=== PATIENT | female | born 1995 | race Two or more races ===

== ENCOUNTER 2017-05-23 12:15 | Emergency (ER) | payer OTHER ==
[2017-05-23 12:25] VITALS: TEMP 99
[2017-05-23] MEDS ORDERED: DEXAMETHASONE 10 MG/ML VIAL IVP ONE (13:04)
[2017-05-23] MEDS ORDERED: METOCLOPRAMIDE 10 MG/2 ML VIAL IVP ONE (13:04)
[2017-05-23] MEDS ORDERED: NS 1,000 ML IV ONE ×2 (13:04→14:33)
--- NOTE | 2017-05-23 13:08 | EDPHY ---
General Narrative: CHIEF COMPLAINT: Flu-like symptoms, migraine, flank pain HISTORY OF PRESENT ILLNESS: Patient complains of 1 week history of migraine headache. Gradual onset. Constant duration. This has become worsened over the past 2 days that she has developed other flu-like symptoms. This includes sore throat, cough, runny nose , congestion, body aches and chills. She also has bilateral flank pain. No dysuria but she has not been drinking much water. She has no chest pain at this time but does have some chest discomfort with cough. No abdominal pain. No neck stiffness but does have some neck pain. No other associated complaints or modifying factors. REVIEW OF SYSTEMS: Ten systems reviewed and are negative unless otherwise noted in the HPI PAST MEDICAL HISTORY: Migraine headaches PAST SURGICAL HISTORY: None SOCIAL HISTORY: Nonsmoker. Recently moved from [facility] to attend [place] [facility] [employer] FAMILY HISTORY: Noncontributory EXAMINATION General Appearance: Alert, no distress Head: normocephalic, atraumatic Eyes: Pupils equal and round, no conjunctival pallor or injection ENT, Mouth: Mucous membranes moist. Uvula midline. Airway is widely patent. There is mild erythema of the pharynx. The tonsils are not enlarged. No exudate. Neck: Normal inspection, supple, non-tender. Painless range of motion all planes. No meningismus or rigidity. Respiratory: Lungs are clear to auscultation. No wheezing, rhonchi or crackles Cardiovascular: Regular rate and rhythm. No murmur Gastrointestinal: Abdomen is soft and nontender Back: non-tender, no bony abnormalities Neurological: A&O, nonfocal, normal gait Skin: Warm and dry, no rash. No petechiae or purpura Extremities: Nontender, no pedal edema Psychiatric: Mood and affect normal DIFFERENTIAL DIAGNOSES: Including but not limited to influenza, mononucleosis, strep, viral pharyngitis , bacterial pharyngitis, upper respiratory infection, pneumonia, bronchitis, UTI , pyelo MDM: 1:00 p.m. Headache, body aches, sore throat, cough of flank pain. Patient does have appearance of influenza. There is no evidence of meningitis. I have ordered laboratory studies, IV fluid and medications for her migraine. She is resting comfortably in no acute distress. 2:30 p.m. I have re-evaluated the patient. Headache is significantly better. Still feeling ill. Laboratory studies thus far are negative for any significant findings. Chest x-ray was not ordered as lungs are clear with normal oxygenation. Suspect influenza or viral etiology. Continue IV fluid. 3:30 p.m. I re-evaluated the patient. She is feeling better. She still feels ill but has no neck pain or stiffness. Her head is mildly painful. He has no chest pain. Vital signs stable. She has received IV fluid. Negative influenza test. Treat symptomatically and follow up with primary care physician. ED precautions discussed. She is comfortable with this plan and discharged home stable condition. - History Smoking Status: Never smoked - Objective Vital Signs: Initial Vital Signs Temperature (C) 99.0 F 05/23/17 12:21 Heart Rate 67 05/23/17 12:21 Respiratory Rate 17 05/23/17 12:21 Blood Pressure 115/72 05/23/17 12:21 O2 Sat (%) 99 05/23/17 12:21 O2 Delivery Mode Room Air Allergies/Adverse Reactions: No Known Allergies Allergy (Unverified 05/23/17 12:20) Home Medications: Medication Instructions Recorded Codeine/Butalbit/Acetamin/Caff 1 each PO Q6 PRN #12 capsule 05/23/17 [Fioricet-Cod 02-78-557-40 Cap] IMITREX 05/23/17 Oseltamivir Phosphate [Tamiflu 75 75 mg PO BID #10 cap 05/23/17 mg (*)] Laboratory Results: Laboratory Results 05/23/17 13:23 05/23/17 13:23 05/23/17 05/23/17 05/23/17 Unknown 13:23 13:23 WBC RBC Hgb Hct MCV MCH MCHC RDW Plt Count MPV Neut % (Auto) Lymph % (Auto) [place] % (Auto) Eos % (Auto) Baso % (Auto) Nucleat RBC Rel Count Absolute Neuts (auto) Absolute Lymphs (auto) Absolute Monos (auto) Absolute Eos (auto) Absolute Basos (auto) Absolute Nucleated RBC Immature Gran % Immature Gran # Sodium 140 mEq/L mEq/L (134-144) Potassium 4.6 mEq/L mEq/L (3.5-5.2) Chloride 106 mEq/L mEq/L (97-110) Carbon Dioxide 24 mEq/l mEq/l (22-31) Anion Gap 10 mEq/L mEq/L (8-16) BUN 13 mg/dL mg/dL (7-23) Creatinine 0.8 mg/dL mg/dL (0.6-1.0) Estimated GFR > 60 Glucose 82 mg/dL mg/dL (70-100) Calcium 10.1 mg/dL mg/dL (8.5-10.4) Beta HCG, Qual Urine Color YELLOW Urine Appearance HAZY Urine pH 7.0 (5.0-7.5) Ur Specific Lar[place] 1.015 (1.002-1.030) Urine Protein NEGATIVE (NEGATIVE) Urine Ketones NEGATIVE (NEGATIVE) Urine Blood 3+ H (NEGATIVE) Urine Nitrate NEGATIVE (NEGATIVE) Urine Bilirubin NEGATIVE (NEGATIVE) Urine Urobilinogen NEGATIVE EU EU (0.2-1.0) Ur Leukocyte Esterase NEGATIVE (NEGATIVE) Urine RBC 50-182 /hpf H /hpf (0-3) Urine WBC 1-3 /hpf /hpf (0-3) Ur Epithelial Cells TRACE /lpf /lpf (NONE-1+) Urine Glucose NEGATIVE (NEGATIVE) Monoscreen Influenza A & B (PCR) Group A Strep Screen Group A Strep DNA Pending 05/23/17 05/23/17 05/23/17 13:23 13:23 13:23 WBC 8.79 10^3/uL 10^3/uL (3.80-9.50) RBC 4.82 10^6/uL 10^6/uL (4.18-5.33) Hgb 13.6 g/dL g/dL (12.6-16.3) Hct 42.7 % % (38.0-47.0) MCV 88.6 fL fL (81.5-99.8) MCH 28.2 pg pg (27.9-34.1) MCHC 31.9 g/dL L g/dL (32.4-36.7) RDW 15.5 % H % (11.5-15.2) Plt Count 353 10^3/uL 10^3/uL (150-400) MPV 10.4 fL fL (8.7-11.7) Neut % (Auto) 52.8 % % (39.3-74.2) Lymph % (Auto) 34.1 % % (15.0-45.0) [place] % (Auto) 8.5 % % (4.5-13.0) Eos % (Auto) 3.6 % % (0.6-7.6) Baso % (Auto) 0.7 % % (0.3-1.7) Nucleat RBC Rel Count 0.0 % % (0.0-0.2) Absolute Neuts (auto) 4.63 10^3/uL 10^3/uL (1.70-6.50) Absolute Lymphs (auto) 3.00 10^3/uL 10^3/uL (1.00-3.00) Absolute Monos (auto) 0.75 10^3/uL 10^3/uL (0.30-0.80) Absolute Eos (auto) 0.32 10^3/uL 10^3/uL (0.03-0.40) Absolute Basos (auto) 0.06 10^3/uL 10^3/uL (0.02-0.10) Absolute Nucleated RBC 0.00 10^3/uL 10^3/uL (0-0.01) Immature Gran % 0.3 % % (0.0-1.1) Immature Gran # 0.03 10^3/uL 10^3/uL (0.00-0.10) Sodium Potassium Chloride Carbon Dioxide Anion Gap BUN Creatinine Estimated GFR Glucose Calcium Beta HCG, Qual NEGATIVE Urine Color Urine Appearance Urine pH Ur Specific Larimore Urine Protein Urine Ketones Urine Blood Urine Nitrate Urine Bilirubin Urine Urobilinogen Ur Leukocyte Esterase Urine RBC Urine WBC Ur Epithelial Cells Urine Glucose Monoscreen NEGATIVE (NEGATIVE) Influenza A & B (PCR) Group A Strep Screen NEGATIVE (NEGATIVE) Group A Strep DNA 05/23/17 13:23 WBC RBC Hgb Hct MCV MCH MCHC RDW Plt Count MPV Neut % (Auto) Lymph % (Auto) [place] % (Auto) Eos % (Auto) Baso % (Auto) Nucleat RBC Rel Count Absolute Neuts (auto) Absolute Lymphs (auto) Absolute Monos (auto) Absolute Eos (auto) Absolute Basos (auto) Absolute Nucleated RBC Immature Gran % Immature Gran # Sodium Potassium Chloride Carbon Dioxide Anion Gap BUN Creatinine Estimated GFR Glucose Calcium Beta HCG, Qual Urine Color Urine Appearance Urine pH Ur Specific Larimore Urine Protein Urine Ketones Urine Blood Urine Nitrate Urine Bilirubin Urine Urobilinogen Ur Leukocyte Esterase Urine RBC Urine WBC Ur Epithelial Cells Urine Glucose Monoscreen Influenza A & B (PCR) NEGATIVE FOR FLU (NEGATIVE) Group A Strep Screen Group A Strep DNA Medications Given: Discontinued Medications Dexamethasone (Decadron Injection) 10 mg IVP EDNOW ONE Stop: 05/23/17 13:05 Last Admin: 05/23/17 13:18 Dose: 10 mg Diphenhydramine HCl (Benadryl Injection) 25 mg IVP EDNOW ONE Stop: 05/23/17 13:05 Last Admin: 05/23/17 13:18 Dose: 25 mg Sodium Chloride (Ns) 1,000 mls @ 0 mls/hr IV EDNOW ONE; Wide Open PRN Reason: Protocol Stop: 05/23/17 13:05 Last Admin: 05/23/17 13:17 Dose: 1,000 mls Sodium Chloride (Ns) 1,000 mls @ 0 mls/hr IV EDNOW ONE; Wide Open PRN Reason: Protocol Stop: 05/23/17 14:34 Last Admin: 05/23/17 14:40 Dose: 1,000 mls Metoclopramide HCl (Reglan Injection) 10 mg IVP EDNOW ONE Stop: 05/23/17 13:05 Last Admin: 05/23/17 13:18 Dose: 10 mg Departure - Departure Disposition: Home, Routine, Self-Care Clinical Impression: Acute upper respiratory infection, Flu-like symptoms Acute pharyngitis Qualifiers: Pharyngitis/tonsillitis etiology: other specified organisms Qualified Code(s): J02.8 - Acute pharyngitis due to other specified organisms Condition: Good Instructions: Pharyngitis (ED), Influenza (ED) Additional Instructions: 1. Increase fluid intake as discussed 2. Ibuprofen, 600 mg every 8 hours as needed for the next 3-5 days 3. Tylenol 3 with codeine for cough and body aches as prescribed as needed 4. ED precautions for worsening symptoms, chest pain, shortness of breath, dizziness Referrals: NONE *PRIMARY CARE P,. [Primary Care Provider] - As per Instructions Kevin Mercado MD [[facility] Primary Care Provider] - As per Instructions Prescriptions: Codeine/Butalbit/Acetamin/Caff [Fioricet-Cod 68-78-090-40 Cap] 1 each PO Q6 PRN #12 capsule PRN Reason: Headache Oseltamivir Phosphate [Tamiflu 75 mg (*)] 75 mg PO BID #10 cap
[2017-05-23 13:39] LABS: % IMMATURE GRANULYOCYTES 0.3 % (0.0-1.1); ABSOLUTE IMMATURE GRANULOCYTES 0.03 10^3/uL (0.00-0.10); ADD DIFF? NO; ADD MORPH? NO; ADD SCAN? NO; ATYPICAL LYMPHOCYTE FLAG 10 (0-99); FRAGMENT RBC FLAG 0 (0-99); HEMATOCRIT 42.7 % (38.0-47.0); HEMOGLOBIN 13.6 g/dL (12.6-16.3); LEFT SHIFT FLG 0 (0-99); LIPEMIA HEMOLYSIS FLAG 80 (0-99); MEAN CELL HEMOGLOBIN 28.2 pg (27.9-34.1); MEAN CELL HEMOGLOBIN CONCENTR. 31.9 g/dL (32.4-36.7); MEAN CELL VOLUME 88.6 fL (81.5-99.8); MEAN PLATELET VOLUME 10.4 fL (8.7-11.7); PLATELET CLUMPS FLAG 0 (0-99); PLATELET COUNT 353 10^3/uL (150-400); RED BLOOD CELL COUNT 4.82 10^6/uL (4.18-5.33); RED CELL DISTRIBUTION WIDTH 15.5 % (11.5-15.2)
[2017-05-23 13:55] LABS: BHCG-QUALITATIVE NEGATIVE
[2017-05-23 13:56] LABS: MONO TEST NEGATIVE (NEGATIVE)
[2017-05-23 14:02] VITALS: BP 107/74
[2017-05-23 14:03] LABS: ANION GAP 10 mEq/L (8-16); CALCIUM 10.1 mg/dL (8.5-10.4); CARBON DIOXIDE 24 mEq/l (22-31); CHLORIDE 106 mEq/L (97-110); CREATININE 0.8 mg/dL (0.6-1.0); GLOMERULAR FILTRATION RATE > 60; GLUCOSE 82 mg/dL (70-100); POTASSIUM 4.6 mEq/L (3.5-5.2); SODIUM 140 mEq/L (134-144)
[2017-05-23 14:06] LABS: COLOR YELLOW; LEUKOCYTE ESTERASE,URINE NEGATIVE (NEGATIVE); NITRITE,URINE NEGATIVE (NEGATIVE)
[2017-05-23 14:25] LABS: RBC,URINE 50-182 /hpf (0-3)
[2017-05-23 14:42] VITALS: PULSE 71; RESP 18; O2SAT 100
== END 2017-05-23 16:03 | disposition home or self-care (01) ==
DX: J11.1 Influenza due to unidentified influenza virus with other respiratory manifestations (principal); E86.9 Volume depletion, unspecified
CPT/HCPCS: 96374; J1100; J1200; J2765

== ENCOUNTER 2017-06-03 09:29 | Emergency (ER) | payer OTHER ==
[2017-06-03 09:46] VITALS: PULSE 70; O2SAT 97
[2017-06-03] MEDS ORDERED: DEXAMETHASONE 10 MG/ML VIAL IVP ONE (10:12)
[2017-06-03] MEDS ORDERED: ONDANSETRON 4 MG/2 ML VIAL IVP ONE (10:12)
[2017-06-03] MEDS ORDERED: NS 1,000 ML IV ONE (10:12)
[2017-06-03] MEDS ORDERED: KETOROLAC 30 MG/1 ML SDV IVP ONE (10:12)
--- NOTE | 2017-06-03 10:15 | EDPHY ---
H & P Smoking Status: Never smoked Time Seen by Provider: 06/03/17 09:53 HPI/ROS: CHIEF COMPLAINT: Headache HISTORY OF PRESENT ILLNESS: 21-year-old female presents to the emergency department complaining of migraine headache. Patient states that she developed gradual onset of a headache that has continued not gone away. She has a history of migraine headaches. She feels that this is a typical headache for her. She typically develops migraine headaches every 2-4 weeks. She takes propranolol daily to prevent migraines and then takes another rescue medication which she tried without relief. No reported trauma. She is photophobic. Denies any other visual changes such as double vision or blurry vision. She feels nauseous although no vomiting. No neck or back pain. No chest pain or difficulty breathing. Last menstrual period was 10 days ago and denies . REVIEW OF SYSTEMS: Constitutional: No fever, no chills. Eyes: No double or blurry vision. ENT: No sore throat. Respiratory: No cough, no shortness of breath. Cardiac: No chest pain. Gastrointestinal: Nausea. No abdominal pain, vomiting or diarrhea. Genitourinary: No dysuria. Musculoskeletal: No neck or back pain. Skin: No rashes. Neurological: headache. 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 Mentating normally and answering questions appropriately. Vital signs are stable. Eyes: Pupils equal and round. Extraocular motions are all intact. ENT: Mouth: Mucous membranes moist. Respiratory: No wheezing, rhonchi, or rales, lungs are clear to auscultation. Cardiovascular: Regular rate and rhythm. Gastrointestinal: Abdomen is soft and nontender, no masses, no rebound or guarding, bowel sounds normal. Neurological: Alert and oriented x 3, cranial nerves II through XII grossly intact Skin: Warm and dry, no rashes. Musculoskeletal: Nontender to palpate along the cervical, thoracic or lumbar spine. Neck is supple. Extremities: Full range of motion and no peripheral edema. Psychiatric: Patient is oriented X 3, there is no agitation. (Judie Ellsworth) Constitutional: Initial Vital Signs Temperature (C) 36.7 C 06/03/17 09:43 Heart Rate 70 06/03/17 09:43 Respiratory Rate 16 06/03/17 09:43 Blood Pressure 123/91 H 06/03/17 09:43 O2 Sat (%) 97 06/03/17 09:43 O2 Delivery Mode Room Air Allergies/Adverse Reactions: No Known Allergies Allergy (Verified 06/03/17 09:41) Home Medications: Medication Instructions Recorded Ondansetron Odt [Zofran Odt] 4 mg PO Q4PRN #8 tab 06/03/17 Propranolol HCl 06/03/17 Rizatriptan 06/03/17 Medical Decision Making ED Course/Re-evaluation: Patient feels that this is a typical migraine headache for her. She has a normal neurologic examination. An IV was established and the patient was given 10 mg of Decadron, 30 mg of Toradol, 4 mg of Zofran, and 1 L of IV normal saline. Patient did not want any medication that would make her drowsy since she is trying to go back to class. Patient was re-evaluated was feeling much better. She is comfortable being discharged home. (Judie Ellsworth) The patient was evaluated and managed by the physician environmental services assistant. I have reviewed this chart and I agree with the findings and plan of care as documented , as indicated by my signature. I am the secondary supervising physician. ( Gogo Alex) Differential Diagnosis: Headache including but not limited to subarachnoid hemorrhage, migraine headache , tension headache and infectious causes such as meningitis, pharyngitis and sinusitis. (Judie Ellsworth) - Data Points Medications Given: Discontinued Medications Dexamethasone (Decadron Injection) 10 mg IVP EDNOW ONE Stop: 06/03/17 10:13 Last Admin: 06/03/17 10:19 Dose: 10 mg Sodium Chloride (Ns) 1,000 mls @ 0 mls/hr IV ONCE ONE PRN Reason: Wide Open Stop: 06/03/17 10:13 Last Admin: 06/03/17 10:19 Dose: 1,000 mls Ketorolac Tromethamine (Toradol) 30 mg IVP EDNOW ONE Stop: 06/03/17 10:13 Last Admin: 06/03/17 10:19 Dose: 30 mg Ondansetron HCl (Zofran) 4 mg IVP EDNOW ONE Stop: 06/03/17 10:13 Last Admin: 06/03/17 10:20 Dose: 4 mg Departure - Departure Disposition: Home, Routine, Self-Care Clinical Impression: Migraine headache Condition: Good Instructions: Migraine Headache (ED) Additional Instructions: Return to the emergency department if any change in symptoms or if you feel worse in any way. You should follow up with your neurologist this week to recheck. Referrals: Anatoliy Cabral MD [Medical Doctor] - As per Instructions (Neurologist on-call ) Stand Alone Forms: School Excuse Prescriptions: Ondansetron Odt [Zofran Odt] 4 mg PO Q4PRN #8 tab
[2017-06-03 11:54] VITALS: BP 118/74; RESP 18; TEMP 97.9
== END 2017-06-03 11:54 | disposition home or self-care (01) ==
DX: G43.909 Migraine, unspecified, not intractable, without status migrainosus (principal)
CPT/HCPCS: 96374; J1100; J1885; J2405

== ENCOUNTER 2017-06-25 11:20 | Emergency (ER) | payer OTHER ==
[2017-06-25 11:24] VITALS: BP 109/80; PULSE 78; RESP 16; TEMP 98.2; O2SAT 96
== END 2017-06-25 12:30 | disposition left against medical advice (07) ==
DX: Z53.21 Procedure and treatment not carried out due to patient leaving prior to being seen by health care provider (principal)

== ENCOUNTER 2017-06-25 16:18 | Emergency (ER) | payer OTHER ==
[2017-06-25 16:27] VITALS: BP 107/70; PULSE 78; RESP 16; TEMP 97.9; O2SAT 98
== END 2017-06-25 18:07 | disposition left against medical advice (07) ==
DX: Z53.21 Procedure and treatment not carried out due to patient leaving prior to being seen by health care provider (principal)

== ENCOUNTER 2017-07-03 12:32 | Emergency (ER) | payer OTHER ==
[2017-07-03] MEDS ORDERED: ONDANSETRON 4 MG/2 ML VIAL IVP ONE (13:34)
[2017-07-03] MEDS ORDERED: KETOROLAC 30 MG/1 ML SDV IVP ONE (13:34)
[2017-07-03] MEDS ORDERED: NS 1,000 ML IV ONE (13:34)
[2017-07-03] MEDS ORDERED: DEXAMETHASONE 10 MG/ML VIAL IVP ONE (13:34)
--- NOTE | 2017-07-03 13:34 | EDPHY ---
H & P Stated Complaint: migraine x 3 weeks Time Seen by Provider: 07/03/17 12:55 HPI/ROS: CHIEF COMPLAINT: Migraine headache HISTORY OF PRESENT ILLNESS: 21-year-old female with a history of chronic migraine headaches complaining of 3 weeks of waxing waning migraine headache worse since this morning not relieved after taking her breakthrough abortive migraine medication. She is on a regimen of daily propranolol as well. She is followed by neurologist in [place], [place]. She is positive photophobia and nausea. No vomiting. No neck pain or stiffness. No fever or chills. Denies head injury. Denies dizziness. Denies hearing loss. Denies gait instability. Not thunderclap. Not worst headache of life. REVIEW OF SYSTEMS: A ten point review of systems was performed and is negative with the exception of the items mentioned in the HPI PAST MEDICAL & SURGICAL HISTORY: Chronic migraine SOCIAL HISTORY:[employer] Student PHYSICAL EXAM (Prior to examination, patient consented to physical exam, hands were washed and my usual and customary physical exam procedures followed) 1) GENERAL: Well-developed, well-nourished, alert and oriented. Appears uncomfortable. 2) HEAD: Normocephalic, atraumatic 3) HEENT: Pupils equal, round, reactive to light bilaterally. Sclera anicteric. No injection. No tearing. No Joan's. Positive photophobia 4) NECK: Full range of motion, no meningeal signs. 5) LUNGS: Clear auscultation bilaterally, no wheezes, no rhonchi, no retractions. 6) HEART: Regular rate and rhythm, no murmur, no heave, no gallop. 7) ABDOMEN: No guarding, no rebound, no focal tenderness 8) MUSCULOSKELETAL: Moving all extremities, no focal areas of tenderness, no obvious trauma. No peripheral edema or discoloration. 9) BACK: No CVA tenderness, no midline vertebral tenderness, no fluctuance, no step-off, no obvious trauma, no visual or palpable abnormality. 10) SKIN: No rash, no petechiae. 11) Psychiatric: Patient is oriented X 3, there is no agitation. 12)NEURO: Awake, alert, and oriented to person, place and time. Answers questions appropriately. There were no obvious focal neurologic abnormalities. No cerebellar dysfunction. Normal steady gait. Upper and lower extremities bilaterally with strength 5 / 5, reflexes 2+. DIFFERENTIAL DIAGNOSIS: In no particular order, including but not limited to subarachnoid hemorrhage, migraine headache, tension headache and infectious causes such as meningitis, pharyngitis and sinusitis. The patient understands that this diagnosis is provisional and can never be 100% accurate. Usual and customary warnings were given concerning the clinical impression and all the patient's questions were answered. The patient was instructed to return to the emergency department should her symptoms worsen or return, or develop any new symptoms, otherwise to followup as directed in discharge instructions. This is a partial list of diagnoses considered. These considerations are based on history, physical exam, past history and reassessment. - Personal History LMP (Females 10-55): 8-14 Days Ago Current Tetanus Diphtheria and Acellular Pertussis (TDAP): Yes - Medical/Surgical History Hx Asthma: No Hx Chronic Respiratory Disease: No Hx Diabetes: No Hx Cardiac Disease: No Hx Renal Disease: No Hx Cirrhosis: No Hx Alcoholism: No Hx HIV/AIDS: No Hx Splenectomy or Spleen Trauma: No Other PMH: MIGRAINES (has hx x 2yrs) - Social History Smoking Status: Never smoked Constitutional: Initial Vital Signs Temperature (C) 36.7 C 07/03/17 12:40 Heart Rate 90 07/03/17 12:40 Respiratory Rate 16 07/03/17 12:40 O2 Sat (%) 100 07/03/17 12:40 O2 Delivery Mode Room Air Allergies/Adverse Reactions: No Known Allergies Allergy (Verified 06/25/17 16:24) Home Medications: Medication Instructions Recorded Ondansetron Odt [Zofran Odt] 4 mg PO Q4PRN #8 tab 06/03/17 Propranolol HCl 06/03/17 Rizatriptan 06/03/17 Medical Decision Making ED Course/Re-evaluation: 1:34 p.m.: Old medical records reviewed. She requests medication which will not cause her drowsiness as she is driving. Prior emergency department visit she was given Decadron, Toradol, Zofran, IV fluids which alleviated her symptoms. She was requesting similar. Care of patient under supervision of secondary supervising physician Dr Ornelas . 2:45 p.m.: Re-evaluation after Decadron, Toradol, Zofran, IV fluids. States that she is feeling improvement, would like to be discharged home. Remains the grossly nonfocal neurologic examination no neurologic complaints. I think that subarachnoid hemorrhage, intracranial mass, malignancy, less than likely in this patient at this time. I do not think that the benefits of CT imaging, lumbar puncture, outweigh the risks in this patient. She has previously been given the name of Dr. Anatoliy Cabral for local neurology follow-up however she may also follow up with her neurologist in [facility]. - Data Points Medications Given: Discontinued Medications Dexamethasone (Decadron Injection) 10 mg IVP EDNOW ONE Stop: 07/03/17 13:35 Last Admin: 07/03/17 13:42 Dose: 10 mg Sodium Chloride (Ns) 1,000 mls @ 0 mls/hr IV ONCE ONE PRN Reason: Wide Open Stop: 07/03/17 13:35 Last Admin: 07/03/17 13:42 Dose: 1,000 mls Ketorolac Tromethamine (Toradol) 30 mg IVP EDNOW ONE Stop: 07/03/17 13:35 Last Admin: 07/03/17 13:42 Dose: 30 mg Ondansetron HCl (Zofran) 4 mg IVP EDNOW ONE Stop: 07/03/17 13:35 Last Admin: 07/03/17 13:42 Dose: 4 mg Departure - Departure Disposition: Home, Routine, Self-Care Clinical Impression: Headache Qualifiers: Headache type: unspecified Headache chronicity pattern: acute headache Intractability: not intractable Qualified Code(s): R51 - Headache Condition: Good Instructions: Acute Headache (ED) Additional Instructions: RETURN TO THE ED IMMEDIATELY IF YOUR HEADACHE WORSENS, IF YOU DEVELOP A FEVER, NECK PAIN OR NECK STIFFNESS, OR IF YOU BECOME CONFUSED OR ABNORMALLY DROWSY. Referrals: Anatoliy Cabral MD [Medical Doctor] - 2-3 days, call for appt. Stand Alone Forms: School Excuse
[2017-07-03 15:05] VITALS: BP 128/73; PULSE 78; RESP 18; TEMP 98.2; O2SAT 97
== END 2017-07-03 15:05 | disposition home or self-care (01) ==
PROC: 3E0337Z Introduction of Electrolytic and Water Balance Substance into Peripheral Vein, Percutaneous Approach (ICD-10-PCS; principal; 2017-07-03)
DX: R51 Headache (principal)
CPT/HCPCS: 96374; J1100; J1885; J2405

== ENCOUNTER 2017-07-18 00:16 | Emergency (ER) | payer OTHER ==
[2017-07-18] MEDS ORDERED: IBUPROFEN 600 MG TAB PO ONE (01:13)
--- NOTE | 2017-07-18 01:59 | EDPHY ---
H & P Stated Complaint: fever/cough/sorethroat/nausea x 3 days Time Seen by Provider: 07/18/17 01:38 HPI/ROS: CC: Fever, ST, cough HPI: 21 y/o female with fever, dry cough, congestion for the past two days. Has not been taking any medicine. Some nausea, no vomiting. No chest pain or shortness of breath. She is up to date on her vaccinations. ROS: 12 point ROS is negative except as noted in HPI. Exam: Awake, Alert, No distress HEENT: Ears: nl nose: clear rhinorrhea Throat, Mild erythema Neck: no lymphadenoapthy, supple Chest: CTA Heart: No murmur Abd, Soft, non-tender Ext: no edema - Medical/Surgical History Hx Asthma: No Hx Chronic Respiratory Disease: No Hx Diabetes: No Hx Cardiac Disease: No Hx Renal Disease: No Hx Cirrhosis: No Hx Alcoholism: No Hx HIV/AIDS: No Hx Splenectomy or Spleen Trauma: No Other PMH: MIGRAINES (has hx x 2yrs), cholecystectomy - Social History Smoking Status: Never smoked Constitutional: Initial Vital Signs Temperature (C) 38.9 C H 07/18/17 00:26 Heart Rate 113 H 07/18/17 00:26 Respiratory Rate 18 07/18/17 00:26 Blood Pressure 113/85 H 07/18/17 00:26 O2 Sat (%) 97 07/18/17 00:26 O2 Delivery Mode Room Air Allergies/Adverse Reactions: No Known Allergies Allergy (Verified 07/18/17 00:31) Home Medications: Medication Instructions Recorded Rizatriptan 06/03/17 Medical Decision Making ED Course/Re-evaluation: Rapid strep is negative. Sx consistent with viral URI. - Data Points Laboratory Results: 07/18/17 07/18/17 Unknown 00:40 Group A Strep Screen NEGATIVE (NEGATIVE) Group A Strep DNA Pending Medications Given: Discontinued Medications Ibuprofen (Motrin) 600 mg PO EDNOW ONE Stop: 07/18/17 01:14 Last Admin: 07/18/17 01:16 Dose: 600 mg Departure - Departure Disposition: Home, Routine, Self-Care Clinical Impression: Viral upper respiratory infection Condition: Good Instructions: Upper Respiratory Infection (ED), Viral Syndrome (ED) Additional Instructions: Follow-up at [facility] in 3-4 days if not feeling better. Referrals: AMAN Ibarra,. [Clinic] - As per Instructions
[2017-07-18 02:18] VITALS: BP 105/82; PULSE 99; RESP 16; TEMP 98.2; O2SAT 96
== END 2017-07-18 02:20 | disposition home or self-care (01) ==
DX: J06.9 Acute upper respiratory infection, unspecified (principal)

== ENCOUNTER 2017-07-25 18:12 | Emergency (ER) | payer OTHER ==
[2017-07-25] MEDS ORDERED: KETOROLAC 30 MG/1 ML SDV IVP ONE (18:55)
[2017-07-25] MEDS ORDERED: NS 1,000 ML IV ONE (18:55)
--- NOTE | 2017-07-25 18:59 | EDPHY ---
H & P Stated Complaint: SENT FROM TO R/O BLOOD CLOT Source: Patient Exam Limitations: No limitations - Personal History LMP (Females 10-55): 1-7 Days Ago Current Tetanus/Diphtheria Vaccine: Unsure Current Tetanus Diphtheria and Acellular Pertussis (TDAP): Unsure - Medical/Surgical History Hx Asthma: No Hx Chronic Respiratory Disease: No Hx Diabetes: No Hx Cardiac Disease: No Hx Renal Disease: No Hx Cirrhosis: No Hx Alcoholism: No Hx HIV/AIDS: No Hx Splenectomy or Spleen Trauma: No Other PMH: MIGRAINES (has hx x 2yrs), cholecystectomy - Social History Smoking Status: Never smoked Time Seen by Provider: 07/25/17 18:56 HPI/ROS: HPI: This is a 21-year-old female presents with Chief Complaint: Sent from [facility] to rule out blood clot Location: Left posterior chest/left thoracic Quality: Pain Duration: 3-4 days Signs and Symptoms: No fever, positive dry cough, no neck pain, no headache, no shortness of breath, no lower leg swelling, no palpitations, no sore throat, no radiation, no weakness Timing: Waxes and wane Severity: [id number] Context: Patient was diagnosed with a viral syndrome last week for which she reports that she has gotten better from but over the last 3-4 days she has noticed of pain by her left shoulder blowing that worsens with taking a deep breath. She was at the gym approximately 5 days ago doing CrossFit training that included cattle balls and broke training. She stopped going to the gym and applied topical pain cream and the pain did not resolve. She is right-hand dominant. LMP less than 1 week ago. No history of asthma, lung disease. Modifying Factors: See above Comment: ROS: see HPI Constitutional: No fever, no chills, no weight loss Eyes: No blurred vision Respiratory: No shortness of breath, no cough Cardiovascular: No chest pain Gastrointestinal: No nausea, no vomiting, no diarrhea Genitourinary: No dysuria Extremities: No myalgias Neurologic: No weakness, no numbness Skin: No rashes Hematologic: No bruising, no bleeding MEDICAL/SURGICAL/SOCIAL HISTORY: Medical history: Migraine, attention deficit hyperactivity disorder Surgical history: Denies Social history: Local college student at [facility] [employer] CONSTITUTIONAL: Well-appearing young adult female, awake and alert, no obvious distress HEENT: Atraumatic and normocephalic. NECK: supple, no midline tenderness, flexion 45 degrees, extension 45 degrees, right and left lateral flexion 45 degrees. No meningismus. Cardiovascular: Normal S1/S2, regular rate, regular rhythm, without murmur rub or gallop. PULMONARY/CHEST: Symmetrical and nontender. no crepitus. Clear to auscultation bilaterally. Good air movement. No accessory muscle usage. ABDOMEN: Soft, nondistended, nontender, no ecchymosis. PELVIC: no pain with rocking; bilateral hips flexion 125 degrees, extension 30 degrees, with no pain internal rotation and no pain external rotation. BACK: No midline tenderness, no paraspinous spasm, left thoracic paraspinous reproducible tenderness with palpation, deep tendon reflexes 2/2, no pain with straight leg raise EXTREMITIES: 2/2 pulses, no deformities, no clubbing, no cyanosis or edema. Left SHOULDER: Arc test abduction to 180, abduction to 45, horizontal flexion 130, horizontal extension to 45, deltoid strength 5/5. No pain with Neer test/Jones test. No Tenderness to palpation over AC joint. NEUROLOGICAL: no focal neuro deficits. GCS 15. Light touch sensation intact. SKIN: Warm and dry, no erythema. no rash. Good capillary refill. (Suez Kang) Constitutional: Initial Vital Signs Temperature (C) 37 C 07/25/17 18:22 Heart Rate 122 H 07/25/17 18:22 Respiratory Rate 14 07/25/17 18:22 Blood Pressure 139/84 H 07/25/17 18:22 O2 Sat (%) 98 07/25/17 18:22 O2 Delivery Mode Room Air Allergies/Adverse Reactions: No Known Allergies Allergy (Verified 07/18/17 00:31) Home Medications: Medication Instructions Recorded Rizatriptan 06/03/17 levOFLOXACIN [levAQUIN (*)] 500 mg PO DAILY #7 tab 07/25/17 Medical Decision Making ED Course/Re-evaluation: Labs, chest x-ray, IV fluids, IV medications ordered Patient is afebrile without systemic signs. Vital signs noted upon arrival in show tachycardia Given 1 L normal saline and IV Toradol 30 mg Chest x-ray my read shows right upper lobe pneumonia. Labs reviewed and show mild leukocytosis leukocytosis. D-dimer within normal limits. Given IV Levaquin 750 mg as well as Rx for same Appropriate to treat patient outpatient as healthy and no lung disease, hypoxia and afebrile. Vital signs repeated at discharge show resolution of tachycardia with IV fluids (Suze Kang) The patient was evaluated and managed by the physician assistant director of financial aid. I have reviewed this chart and I agree with the findings and plan of care as documented , as indicated by my signature. I am the secondary supervising physician. ( Gogo Alex) Differential Diagnosis: Shortness of breath including but not limited to pulmonary infectious process, COPD, asthma, pulmonary embolus and congestive heart failure. (Suze Kang) - Data Points Laboratory Results: Laboratory Results 07/25/17 19:00 07/25/17 19:00 Medications Given: Discontinued Medications Sodium Chloride (Ns) 1,000 mls @ 0 mls/hr IV EDNOW ONE; Wide Open PRN Reason: Protocol Stop: 07/25/17 18:56 Last Admin: 07/25/17 19:29 Dose: 1,000 mls Levofloxacin/Dextrose (Levaquin 750 Mg (Premix)) 150 mls @ 100 mls/hr IV EDNOW ONE PRN Reason: Protocol Stop: 07/25/17 20:59 Last Admin: 07/25/17 19:40 Dose: 150 mls Ketorolac Tromethamine (Toradol) 30 mg IVP EDNOW ONE Stop: 07/25/17 18:56 Last Admin: 07/25/17 19:29 Dose: 30 mg Departure - Departure Disposition: Home, Routine, Self-Care Clinical Impression: Community acquired pneumonia Condition: Good Instructions: Community Acquired Pneumonia (ED) Additional Instructions: Take all antibiotics as directed. Use Tylenol and/or ibuprofen as needed fever, pain. Drink plenty of fluids and rest until feeling better. Referrals: [facility],. [Clinic] - As per Instructions Prescriptions: levOFLOXACIN [levAQUIN (*)] 500 mg PO DAILY #7 tab
[2017-07-25 19:07] LABS: % IMMATURE GRANULYOCYTES 0.5 % (0.0-1.1); ABSOLUTE IMMATURE GRANULOCYTES 0.06 10^3/uL (0.00-0.10); ADD DIFF? NO; ADD MORPH? NO; ADD SCAN? NO; ATYPICAL LYMPHOCYTE FLAG 40 (0-99); FRAGMENT RBC FLAG 0 (0-99); HEMATOCRIT 42.5 % (38.0-47.0); HEMOGLOBIN 14.4 g/dL (12.6-16.3); LEFT SHIFT FLG 0 (0-99); LIPEMIA HEMOLYSIS FLAG 90 (0-99); MEAN CELL HEMOGLOBIN CONCENTR. 33.9 g/dL (32.4-36.7); MEAN CELL VOLUME 85.5 fL (81.5-99.8); MEAN PLATELET VOLUME 9.4 fL (8.7-11.7); PLATELET CLUMPS FLAG 0 (0-99); PLATELET COUNT 542 10^3/uL (150-400); RED BLOOD CELL COUNT 4.97 10^6/uL (4.18-5.33); RED CELL DISTRIBUTION WIDTH 14.4 % (11.5-15.2)
[2017-07-25 19:18] LABS: ANION GAP 15 mEq/L (8-16); CALCIUM 10.2 mg/dL (8.5-10.4); CARBON DIOXIDE 21 mEq/l (22-31); CHLORIDE 106 mEq/L (97-110); CREATININE 0.9 mg/dL (0.6-1.0); GLOMERULAR FILTRATION RATE > 60; GLUCOSE 88 mg/dL (70-100); POTASSIUM 3.9 mEq/L (3.5-5.2); SODIUM 142 mEq/L (134-144)
[2017-07-25 19:45] VITALS: BP 116/91; RESP 16
[2017-07-25 20:53] VITALS: PULSE 101; TEMP 97.5; O2SAT 100
== END 2017-07-25 21:01 | disposition home or self-care (01) ==
LOC: EEVIPCON 18:12
DX: J18.9 Pneumonia, unspecified organism (principal); E86.9 Volume depletion, unspecified
CPT/HCPCS: 96365; J1885; J1956

== ENCOUNTER 2017-08-07 11:25 | Emergency (ER) | payer OTHER ==
[2017-08-07] MEDS ORDERED: KETOROLAC 30 MG/1 ML SDV IVP ONE (12:08)
--- NOTE | 2017-08-07 12:10 | EDPHY ---
H & P Stated Complaint: Dx'd here w/[facility] 1 wk ago;feels like she still has it;wants re- eval Source: Patient Exam Limitations: No limitations - Personal History LMP (Females 10-55): 15-21 Days Ago Current Tetanus Diphtheria and Acellular Pertussis (TDAP): Unsure - Medical/Surgical History Hx Asthma: No Hx Chronic Respiratory Disease: No Hx Diabetes: No Hx Cardiac Disease: No Hx Renal Disease: No Hx Cirrhosis: No Hx Alcoholism: No Hx HIV/AIDS: No Hx Splenectomy or Spleen Trauma: No Other PMH: MIGRAINES (has hx x 2yrs), cholecystectomy - Social History Smoking Status: Never smoked Time Seen by Provider: 08/07/17 12:08 HPI/ROS: HPI: This is a 21-year-old female who presents with Chief Complaint: Left posterior shoulder/chest pain Location: Left posterior shoulder/chest Quality: Pain Duration: Since last night Signs and Symptoms: No fever, + dry cough, no chills, no wheezing, no neck stiffness, no radiation, no weakness, no decreased range of motion, No injury Timing: Sudden Severity: Moderate Context: Patient reports that last night while she was lying in bed, she started to cough-nonproductive in nature and had return of her left posterior shoulder/posterior chest discomfort that only occurs when she lies on the area directly or coughs. She denies any wheezing, chest pain, shortness of breath, fevers. She was seen in the emergency room on 07/25/2017 with cough and upper respiratory like symptoms; she had laboratory findings that showed an unremarkable D-dimer and a chest x-ray that showed anterior focal segment in the right upper lobe concerning for developing pneumonia. She was placed on 7 days of Levaquin for which the patient states that she was compliant and took all medication as prescribed. She left on 07/27/2017 for [place] to visit family for the . She denies any lower extremity swelling, hemoptysis. Her last menstrual period was approximately 16 days ago. She reports that she did return to the gym yesterday but did not perform any heavy lifting. She is right-hand dominant Modifying Factors: Comment: ROS: see HPI Constitutional: No fever, no chills, no weight loss Eyes: No blurred vision Respiratory: No shortness of breath, + cough Cardiovascular: No chest pain Gastrointestinal: No nausea, no vomiting, no diarrhea Genitourinary: No dysuria Extremities: No myalgias Neurologic: No weakness, no numbness Skin: No rashes Hematologic: No bruising, no bleeding MEDICAL/SURGICAL/SOCIAL HISTORY: Medical history: Migraine headaches Surgical history: Cholecystectomy Social history: Local college student CONSTITUTIONAL: Well-developed well-nourished teenage female, nontoxic in appearance, awake and alert, no obvious distress HEENT: Atraumatic and normocephalic, PERRL, EOMI. Tympanic membranes clear. Oropharynx clear, no exudate and moist pink mucosa. Airway patent. No lymphadenopathy. No meningismus. Cardiovascular: Normal S1/S2, regular rate, regular rhythm, without murmur rub or gallop. PULMONARY/CHEST: Symmetrical and nontender. Clear to auscultation bilaterally. Good air movement. No accessory muscle usage. ABDOMEN: Soft, nondistended, nontender, no rebound, no guarding, no peritoneal signs, no masses or organomegaly. No CVAT. EXTREMITIES: 2/2 pulses, strength 5/5, LEFT SHOULDER: Arc test abduction to 180, abduction to 45, horizontal flexion 130, horizontal extension to 45, deltoid strength 5/5. No pain with Neer test/Jones test (impingement). No Tenderness to palpation over AC joint. no deformities, no clubbing, no cyanosis or edema. BACK: No midline tenderness, no paraspinous spasm, moderate reproducible tenderness over the left scapula/trapezius muscle. deep tendon reflexes 2/2, no pain with straight leg raise NEUROLOGICAL: no focal neuro deficits. GCS 15. SKIN: Warm and dry, no erythema. no rash. Good capillary refill. (Pearl,Terra) Constitutional: Initial Vital Signs Temperature (C) 36.8 C 08/07/17 11:29 Heart Rate 88 08/07/17 11:29 Respiratory Rate 18 08/07/17 11:29 Blood Pressure 104/69 08/07/17 11:29 O2 Sat (%) 99 08/07/17 11:29 O2 Delivery Mode Room Air Allergies/Adverse Reactions: No Known Allergies Allergy (Verified 08/07/17 11:28) Home Medications: Medication Instructions Recorded Rizatriptan 06/03/17 Cyclobenzaprine [Flexeril 10 MG 10 mg PO Q8 PRN #10 tab 08/07/17 (*)] Medical Decision Making - Diagnostics Imaging Results: Imaging Impressions Chest/Thorax CTA 08/07/17 12:08 Impression: 1. No evidence of thrombopulmonary embolic disease. 2. Near complete resolution of right upper lobe pneumonia with minimal residual atelectasis. 3. Mild underlying airways disease. 4. No pleural or pericardial effusion. Findings discussed with Emergency Department physician, Suze Kang PA-C on August 07, 2017 at 1330 hours. ED Course/Re-evaluation: Labs, IV Toradol, CTA chest ordered as patient has risk factors. Vital signs reviewed and show no hypoxia, tachycardia. Patient has no systemic signs to indicate sepsis. Labs reviewed and unremarkable CTA chest shows no pulmonary embolism, right upper lobe pneumonia is resolved when compared to a chest x-ray 13 days prior. Etiology appears to be musculoskeletal in nature. Left shoulder exam is completely unremarkable in no signs of internal derangement. Patient would benefit with [facility] as well as outpatient physical therapy and proper lifting ergonomics. (Suze Kang) Differential Diagnosis: Differential diagnosis includes but is not limited to musculoskeletal, pneumonia , pulmonary embolism. (Suze Kang) Other Provider: PHYSICIAN DOCUMENTATION: The patient was evaluated and managed by the Physician Occupational Health Physician. My co- signature indicates that I have reviewed this chart and I agree with the findings and plan of care as documented. I am the secondary supervising physician. (Frankie Sanders) - Data Points Laboratory Results: Laboratory Results 08/07/17 12:16 08/07/17 12:16 08/07/17 08/07/17 08/07/17 12:16 12:16 12:16 WBC 8.39 10^3/uL 10^3/uL (3.80-9.50) RBC 4.58 10^6/uL 10^6/uL (4.18-5.33) Hgb 13.1 g/dL g/dL (12.6-16.3) Hct 39.1 % % (38.0-47.0) MCV 85.4 fL fL (81.5-99.8) MCH 28.6 pg pg (27.9-34.1) MCHC 33.5 g/dL g/dL (32.4-36.7) RDW 15.0 % % (11.5-15.2) Plt Count 362 10^3/uL 10^3/uL (150-400) MPV 10.0 fL fL (8.7-11.7) Neut % (Auto) 60.7 % % (39.3-74.2) Lymph % (Auto) 31.0 % % (15.0-45.0) [place] % (Auto) 6.8 % % (4.5-13.0) Eos % (Auto) 0.7 % % (0.6-7.6) Baso % (Auto) 0.7 % % (0.3-1.7) Nucleat RBC Rel Count 0.0 % % (0.0-0.2) Absolute Neuts (auto) 5.09 10^3/uL 10^3/uL (1.70-6.50) Absolute Lymphs (auto) 2.60 10^3/uL 10^3/uL (1.00-3.00) Absolute Monos (auto) 0.57 10^3/uL 10^3/uL (0.30-0.80) Absolute Eos (auto) 0.06 10^3/uL 10^3/uL (0.03-0.40) Absolute Basos (auto) 0.06 10^3/uL 10^3/uL (0.02-0.10) Absolute Nucleated RBC 0.00 10^3/uL 10^3/uL (0-0.01) Immature Gran % 0.1 % % (0.0-1.1) Immature Gran # 0.01 10^3/uL 10^3/uL (0.00-0.10) Sodium 139 mEq/L mEq/L (134-144) Potassium 3.8 mEq/L mEq/L (3.5-5.2) Chloride 108 mEq/L mEq/L (97-110) Carbon Dioxide 19 mEq/l L mEq/l (22-31) Anion Gap 12 mEq/L mEq/L (8-16) BUN 15 mg/dL mg/dL (7-23) Creatinine 1.0 mg/dL mg/dL (0.6-1.0) Estimated GFR > 60 Glucose 82 mg/dL mg/dL (70-100) Calcium 9.8 mg/dL mg/dL (8.5-10.4) Beta HCG, Qual NEGATIVE Medications Given: Discontinued Medications Ketorolac Tromethamine (Toradol) 30 mg IVP EDNOW ONE Stop: 08/07/17 12:09 Last Admin: 08/07/17 12:22 Dose: 30 mg Departure - Departure Disposition: Home, Routine, Self-Care Clinical Impression: Muscle strain of left shoulder region Qualifiers: Encounter type: initial encounter Qualified Code(s): S46.912A - Strain of unspecified muscle, fascia and tendon at shoulder and upper arm level, left arm , initial encounter Condition: Good Instructions: Muscle Strain (ED) Additional Instructions: CT scan of your chest today shows no blood clot in your lung in the pneumonia in her up right upper lobe seen on her chest x-ray 13 days ago has resolved. Your lab work today was completely unremarkable. It appears that she have a musculoskeletal strain in the region that she feeling discomfort. Apply ice for 30 minutes at a time; 2-3 times per day for the next 1-2 days. Please follow up with [facility] as you may benefit from physical therapy outpatient. Referrals: [facility],. [Clinic] - As per Instructions Prescriptions: Cyclobenzaprine [Flexeril 10 MG (*)] 10 mg PO Q8 PRN #10 tab PRN Reason: Spasms
[2017-08-07 12:23] VITALS: RESP 16
[2017-08-07 12:26] LABS: % IMMATURE GRANULYOCYTES 0.1 % (0.0-1.1); ABSOLUTE IMMATURE GRANULOCYTES 0.01 10^3/uL (0.00-0.10); ADD DIFF? NO; ADD MORPH? NO; ADD SCAN? NO; ATYPICAL LYMPHOCYTE FLAG 20 (0-99); FRAGMENT RBC FLAG 0 (0-99); HEMATOCRIT 39.1 % (38.0-47.0); HEMOGLOBIN 13.1 g/dL (12.6-16.3); LEFT SHIFT FLG 0 (0-99); LIPEMIA HEMOLYSIS FLAG 80 (0-99); MEAN CELL HEMOGLOBIN 28.6 pg (27.9-34.1); MEAN CELL HEMOGLOBIN CONCENTR. 33.5 g/dL (32.4-36.7); MEAN CELL VOLUME 85.4 fL (81.5-99.8); PLATELET CLUMPS FLAG 10 (0-99); PLATELET COUNT 362 10^3/uL (150-400); RED BLOOD CELL COUNT 4.58 10^6/uL (4.18-5.33)
[2017-08-07 12:48] LABS: ANION GAP 12 mEq/L (8-16); CALCIUM 9.8 mg/dL (8.5-10.4); CARBON DIOXIDE 19 mEq/l (22-31); CHLORIDE 108 mEq/L (97-110); GLOMERULAR FILTRATION RATE > 60; GLUCOSE 82 mg/dL (70-100); POTASSIUM 3.8 mEq/L (3.5-5.2); SODIUM 139 mEq/L (134-144)
[2017-08-07] MEDS ORDERED: IOPAMIDOL (ISOVUE 370) 100 ML BTL IV ONE (12:56)
[2017-08-07 14:00] VITALS: BP 93/70; PULSE 80; TEMP 98.1; O2SAT 90
== END 2017-08-07 14:02 | disposition home or self-care (01) ==
DX: S46.912A Strain of unspecified muscle, fascia and tendon at shoulder and upper arm level, left arm, initial encounter (principal); X58.XXXA Exposure to other specified factors, initial encounter
CPT/HCPCS: 96374; J1885; Q9967

== ENCOUNTER 2017-08-12 03:28 | Emergency (ER) | payer OTHER ==
[2017-08-12] MEDS ORDERED: NS 1,000 ML IV ONE (03:55)
[2017-08-12] MEDS ORDERED: ONDANSETRON 4 MG/2 ML VIAL IVP ONE (03:55)
[2017-08-12] MEDS ORDERED: KETOROLAC 15 MG/1 ML SDV IVP ONE (03:55)
--- NOTE | 2017-08-12 04:34 | EDPHY ---
H & P Stated Complaint: Migraine, anxiety from school Time Seen by Provider: 08/12/17 03:41 HPI/ROS: HPI The patient presents with headache which she describes as a migraine which has been present for the last 1 day. It started slowly, is left-sided, throbbing, associated with nausea and photophobia. It feels like her prior migraines. She took her Triptan medication this morning with some improvement, however her headaches continue. She has history of similar headaches and was diagnosed with migraines by Dr. Cabral of Neurology. She has been taking her medications as prescribed. She says she is not sleeping well and feels stressed because of upcoming exams that she feels this is what triggered the migraine. REVIEW OF SYSTEMS Constitutional: No fever, no chills. Eyes: No discharge. ENT: No sore throat. Cardiovascular: No chest pain, no palpitations. Respiratory: No cough, no shortness of breath. Gastrointestinal: No abdominal pain, no vomiting. Genitourinary: No hematuria. Musculoskeletal: No back pain. Skin: No rashes. Neurological: Positive for headache. PMHx: Migraine headaches, multiple recent ER visits Soc Hx: College student PHYSICAL General Appearance: Alert, no distress Eyes: Pupils equal and round no pallor or injection ENT, Mouth: Mucous membranes moist Respiratory: There are no retractions, lungs are clear to auscultation Cardiovascular: Regular rate and rhythm Gastrointestinal: Abdomen is soft and non-tender, no masses, bowel sounds normal Neurological: A&O x3, cranial nerves 2-12 intact, 5/5 strength in upper and lower extremities which is symmetric, normal finger to nose testing Skin: Warm and dry, no rashes Musculoskeletal: Neck is supple non tender Extremities: symmetrical, full range of motion Psychiatric: Patient is oriented X 3, there is no agitation Source: Patient Exam Limitations: No limitations - Personal History LMP (Females 10-55): 15-21 Days Ago Current Tetanus/Diphtheria Vaccine: No Current Tetanus Diphtheria and Acellular Pertussis (TDAP): No - Medical/Surgical History Hx Asthma: No Hx Chronic Respiratory Disease: No Hx Diabetes: No Hx Cardiac Disease: No Hx Renal Disease: No Hx Cirrhosis: No Hx Alcoholism: No Hx HIV/AIDS: No Hx Splenectomy or Spleen Trauma: No Other PMH: MIGRAINES (has hx x 2yrs), cholecystectomy - Social History Smoking Status: Never smoked Constitutional: Initial Vital Signs Temperature (C) 36.9 C 08/12/17 03:29 Heart Rate 79 08/12/17 03:29 Respiratory Rate 19 08/12/17 03:29 Blood Pressure 111/76 08/12/17 03:29 O2 Sat (%) 99 08/12/17 03:29 O2 Delivery Mode Room Air Allergies/Adverse Reactions: No Known Allergies Allergy (Verified 08/07/17 11:28) Home Medications: Medication Instructions Recorded Rizatriptan 06/03/17 Cyclobenzaprine [Flexeril 10 MG 10 mg PO Q8 PRN #10 tab 08/07/17 (*)] Medical Decision Making Differential Diagnosis: 21-year-old female presents with 1 day of unilateral throbbing headache associated with photophobia and nausea. On exam, she has no neurologic deficits , she has no nuchal rigidity or fever. Differential diagnosis includes migraine headache, tension type headache, less likely meningitis given no fever nuchal rigidity, less likely subarachnoid hemorrhage given no neurologic deficits. In the emergency department, patient was given IV fluids, Toradol, Zofran with complete improvement in her headache. She felt well enough to go home and was discharged. She was advised to continue her migraine medication and follow up with her neurologist as needed. - Data Points Medications Given: Discontinued Medications Sodium Chloride (Ns) 1,000 mls @ 0 mls/hr IV EDNOW ONE; Wide Open PRN Reason: Protocol Stop: 08/12/17 03:56 Last Admin: 08/12/17 04:03 Dose: 1,000 mls Ketorolac Tromethamine (Toradol) 15 mg IVP EDNOW ONE Stop: 08/12/17 03:56 Last Admin: 08/12/17 04:03 Dose: 15 mg Ondansetron HCl (Zofran) 4 mg IVP EDNOW ONE Stop: 08/12/17 03:56 Last Admin: 08/12/17 04:03 Dose: 4 mg Departure - Departure Disposition: Home, Routine, Self-Care Clinical Impression: Migraine headache Qualifiers: Migraine type: without aura Status migrainosus presence: with status migrainosus Intractability: not intractable Qualified Code(s): G43.001 - Migraine without aura, not intractable, with status migrainosus Condition: Good Instructions: Migraine Headache (ED) Ref[facility]: [facility] [[facility]] - As per Instructions Anatoliy Cabral MD [Medical Doctor] - As per Instructions Stand Alone Forms: School Excuse
[2017-08-12 04:46] VITALS: BP 114/64; PULSE 73; RESP 16; TEMP 98.1; O2SAT 96
== END 2017-08-12 04:49 | disposition home or self-care (01) ==
DX: G43.001 Migraine without aura, not intractable, with status migrainosus (principal); E86.9 Volume depletion, unspecified
CPT/HCPCS: 96374; J1885; J2405

== ENCOUNTER 2017-08-17 19:55 | Emergency (ER) | payer OTHER ==
[2017-08-17 20:01] VITALS: RESP 16; TEMP 97.7; O2SAT 98
[2017-08-17] MEDS ORDERED: KETOROLAC 30 MG/1 ML SDV ONE (20:10)
[2017-08-17] MEDS ORDERED: ONDANSETRON 4 MG/2 ML VIAL IVP ONE (20:12)
[2017-08-17] MEDS ORDERED: DEXAMETHASONE 10 MG/ML VIAL IVP ONE (20:12)
[2017-08-17] MEDS ORDERED: KETOROLAC 30 MG/1 ML SDV IVP ONE (20:12)
[2017-08-17] MEDS ORDERED: NS 1,000 ML IV ONE (20:12)
--- NOTE | 2017-08-17 20:12 | EDPHY ---
H & P Stated Complaint: c/o migraine/nausea x 2 days - Medical/Surgical History Hx Asthma: No Hx Chronic Respiratory Disease: No Hx Diabetes: No Hx Cardiac Disease: No Hx Renal Disease: No Hx Cirrhosis: No Hx Alcoholism: No Hx HIV/AIDS: No Hx Splenectomy or Spleen Trauma: No Other PMH: MIGRAINES (has hx x 2yrs), cholecystectomy - Social History Smoking Status: Never smoked Time Seen by Provider: 08/17/17 20:06 HPI/ROS: CHIEF COMPLAINT: Migraine headache x2 days HISTORY OF PRESENT ILLNESS: 21-year-old female history of chronic migraine headaches presents to the ER complaining of 2 days of left-sided migraine headaches, throbbing, associated with nausea, photophobia, audio phobia. Feels exactly similar to her prior migraines. Took her Triptan medication with some improvement however headache then returned. She is followed by Dr. Anatoliy Cabral, neurology. She drove herself to the ER. She does note increase in usual stress based on academic load, upcoming final examinations. Headache was not thunderclap, described as gradual onset similar to prior migraine headaches. No gait instability. No slurred speech. No head injury. No neck pain or injury or manipulation. PRIMARY CARE PROVIDER: REVIEW OF SYSTEMS: A ten point review of systems was performed and is negative with the exception of the items mentioned in the HPI PAST MEDICAL & SURGICAL HISTORY: Chronic migraine SOCIAL HISTORY: Nonsmoker no drug use. Student PHYSICAL EXAM (Prior to examination, patient consented to physical exam, hands were washed and my usual and customary physical exam procedures followed) 1) GENERAL: Well-developed, well-nourished, alert and oriented. Appears uncomfortable sitting in a darkened room. 2) HEAD: Normocephalic, atraumatic 3) HEENT: Pupils equal, round, reactive to light bilaterally. Positive photophobia. 4) NECK: Full range of motion, no meningeal signs. 5) LUNGS: Clear auscultation bilaterally, no wheezes, no rhonchi, no retractions. 6) HEART: Regular rate and rhythm, no murmur, no heave, no gallop. 7) ABDOMEN: No guarding, no rebound, no focal tenderness, negative McBurney's, negative Brown's, negative Rovsing's, negative peritoneal sign, 8) MUSCULOSKELETAL: Moving all extremities, no focal areas of tenderness, no obvious trauma. No peripheral edema or discoloration. 9) BACK: No CVA tenderness, no midline vertebral tenderness, no fluctuance, no step-off, no obvious trauma, no visual or palpable abnormality. 10) SKIN: No rash, no petechiae. 11) Psychiatric: Patient is oriented X 3, there is no agitation. 12) NEURO: Awake, alert, and oriented to person, place and time. Answers questions appropriately. There were no obvious focal neurologic abnormalities. No cerebellar dysfunction. Normal steady gait. Upper and lower extremities bilaterally with strength 5 / 5, reflexes 2+. DIFFERENTIAL DIAGNOSIS: In no particular order, including but not limited to subarachnoid hemorrhage, migraine headache, tension headache and infectious causes such as meningitis, pharyngitis and sinusitis. The patient understands that this diagnosis is provisional and can never be 100% accurate. Usual and customary warnings were given concerning the clinical impression and all the patient's questions were answered. The patient was instructed to return to the emergency department should her symptoms worsen or return, or develop any new symptoms, otherwise to followup as directed in discharge instructions. This is a partial list of diagnoses considered. These considerations are based on history, physical exam, past history and reassessment. (Ishaan Richter) Constitutional: Initial Vital Signs Temperature (C) 36.5 C 08/17/17 19:59 Heart Rate 96 08/17/17 19:59 Respiratory Rate 16 08/17/17 19:59 Blood Pressure 119/79 08/17/17 19:59 O2 Sat (%) 98 08/17/17 19:59 O2 Delivery Mode Room Air Allergies/Adverse Reactions: No Known Allergies Allergy (Verified 08/17/17 20:01) Home Medications: Medication Instructions Recorded Rizatriptan 06/03/17 Cyclobenzaprine [Flexeril 10 MG 10 mg PO Q8 PRN #10 tab 08/07/17 (*)] Medical Decision Making ED Course/Re-evaluation: 8:12 p.m.: Care of patient under supervision of secondary supervising physician Dr Ann . Old medical records reviewed. She requests nonnarcotic. She has previously had relief with Toradol, Zofran. She will be given this in addition to IV fluids and IV Decadron and re-evaluated. At this time I do not think that imaging or diagnostic studies are definitively indicated. 9:25 p.m.: Re-evaluation. She is feeling improvement but does note some residual pain. She drove herself to the ER would like to drive home. We discussed medications and impairment of judgment. We discussed sending her home with a prepack of analgesia which she may take it home, however she may not operate machinery, drive, similar. I think that subarachnoid hemorrhage, intracranial mass, malignancy, less than likely in this patient at this time. I do not think that the benefits of CT imaging, lumbar puncture, outweigh the risks in this patient. Recommend she follow up with neurologist Dr. Anatoliy Cabral. She feels comfortable being discharged. (Ishaan Richter) I did not see this patient while she was in the emergency department. However her care was discussed with the PA while the patient was in the department. I agree with treatment plan and management. IM the secondary supervising physician (Chris Ann) - Data Points Medications Given: Discontinued Medications Hydrocodone Bitart/Acetaminophen ([place] 5/325mg Prepack#6) 1 btl TAKEHOME EDNOW ONE Stop: 08/17/17 21:29 Last Admin: 08/17/17 21:36 Dose: 1 btl Dexamethasone (Decadron Injection) 10 mg IVP EDNOW ONE Stop: 08/17/17 20:13 Last Admin: 08/17/17 20:21 Dose: 10 mg Sodium Chloride (Ns) 1,000 mls @ 0 mls/hr IV ONCE ONE PRN Reason: Wide Open Stop: 08/17/17 20:13 Last Admin: 08/17/17 20:20 Dose: 1,000 mls Ketorolac Tromethamine (Toradol) 30 mg IVP EDNOW ONE Stop: 08/17/17 20:13 Last Admin: 08/17/17 20:21 Dose: 30 mg Ondansetron HCl (Zofran) 4 mg IVP EDNOW ONE Stop: 08/17/17 20:13 Last Admin: 08/17/17 20:21 Dose: 4 mg Departure - Departure Disposition: Home, Routine, Self-Care Clinical Impression: Headache Qualifiers: Headache type: other headache syndrome Qualified Code(s): G44.89 - Other headache syndrome Condition: Good Instructions: Hydrocodone/Acetaminophen (By mouth), Acute Headache (ED) Additional Instructions: PLEASE FOLLOW UP WITH YOUR DOCTOR WITHIN 24 HOURS TO BE RECHECKED. RETURN TO THE ED IMMEDIATELY IF YOUR HEADACHE WORSENS, IF YOU DEVELOP A FEVER, NECK PAIN OR NECK STIFFNESS, OR IF YOU BECOME CONFUSED OR ABNORMALLY DROWSY. Referrals: Anatoliy Cabral MD [Medical Doctor] - 1-2 days without fail Stand Alone Forms: School Excuse
[2017-08-17] MEDS ORDERED: HYDROCOD/APAP 5/325 PREPACK#6 BTL TAKEHOME ONE (21:28)
[2017-08-17 21:41] VITALS: BP 114/70
[2017-08-17 21:42] VITALS: PULSE 90
== END 2017-08-17 21:42 | disposition home or self-care (01) ==
DX: G44.89 Other headache syndrome (principal)
CPT/HCPCS: 96374; J1100; J1885; J2405

== ENCOUNTER 2017-08-23 02:00 | Emergency (ER) | payer OTHER ==
[2017-08-23 02:05] VITALS: TEMP 98.4
[2017-08-23] MEDS ORDERED: KETOROLAC 15 MG/1 ML SDV IVP ONE (02:54)
[2017-08-23] MEDS ORDERED: ONDANSETRON 4 MG/2 ML VIAL IVP ONE (02:54)
[2017-08-23] MEDS ORDERED: NS 1,000 ML IV ONE (02:54)
[2017-08-23] MEDS ORDERED: DEXAMETHASONE 10 MG/ML VIAL IVP ONE (03:00)
--- NOTE | 2017-08-23 03:03 | EDPHY ---
H & P Stated Complaint: HEADACHE X 2 DAYS Time Seen by Provider: 08/23/17 02:53 HPI/ROS: HPI The patient presents with headache, left-sided, throbbing associated nausea and photophobia, symptoms began earlier today day and have been present for about 12 hr. He has a history of migraine headaches with numerous ER visits. She is seen by Neurology. She is currently on Topamax daily which she is taking. However, she had up he tripped hand has she feels it makes her nauseous. She was studying at the [employer] and did not have any access to her usual medications though did not try taking anything out for her headache. She denies trauma. She believes stress from finals brought out her migraine. REVIEW OF SYSTEMS Constitutional: No fever, no chills. Eyes: No discharge. ENT: No sore throat. Cardiovascular: No chest pain, no palpitations. Respiratory: No cough, no shortness of breath. Gastrointestinal: No abdominal pain, no vomiting. Genitourinary: No hematuria. Musculoskeletal: No back pain. Skin: No rashes. Neurological: No headache. PMHx: Migraine headaches, frequent visits the emergency department Soc Hx: College student PHYSICAL General Appearance: Alert, no distress Eyes: Pupils equal and round no pallor or injection ENT, Mouth: Mucous membranes moist Respiratory: There are no retractions, lungs are clear to auscultation Cardiovascular: Regular rate and rhythm Gastrointestinal: Abdomen is soft and non-tender, no masses, bowel sounds normal Neurological: Alert and oriented times x3, cranial nerves 2-12 intact, 5/5 strength in upper lower extremities is symmetric Skin: Warm and dry, no rashes Musculoskeletal: Neck is supple non tender Extremities: symmetrical, full range of motion Psychiatric: Patient is oriented X 3, there is no agitation Source: Patient Exam Limitations: No limitations - Personal History LMP (Females 10-55): 1-7 Days Ago Current Tetanus/Diphtheria Vaccine: Unsure Current Tetanus Diphtheria and Acellular Pertussis (TDAP): Unsure - Medical/Surgical History Hx Asthma: No Hx Chronic Respiratory Disease: No Hx Diabetes: No Hx Cardiac Disease: No Hx Renal Disease: No Hx Cirrhosis: No Hx Alcoholism: No Hx HIV/AIDS: No Hx Splenectomy or Spleen Trauma: No Other PMH: MIGRAINES (has hx x 2yrs), cholecystectomy - Social History Smoking Status: Never smoked Constitutional: Initial Vital Signs Temperature (C) 36.9 C 08/23/17 02:01 Heart Rate 105 H 08/23/17 02:01 Respiratory Rate 18 08/23/17 02:01 Blood Pressure 118/85 H 08/23/17 02:01 O2 Sat (%) 96 08/23/17 02:01 O2 Delivery Mode Room Air Allergies/Adverse Reactions: No Known Allergies Allergy (Verified 08/17/17 20:01) Home Medications: Medication Instructions Recorded Rizatriptan 06/03/17 Medical Decision Making Differential Diagnosis: 22-year-old female history of migraine headaches, multiple ER visits, presents with unilateral throbbing headache associated with photophobia and nausea. Been taking Topamax regularly, however did try any additional medications at home. Headaches like prior migraines. I feel this is most likely migraine, versus tension-type aches sinusitis. Plan for her usual treatment course here which is IV fluids, Toradol, antibiotics. I have discussed with her at length the importance of in her medications with her if she is feeling headache. Departure - Departure Disposition: Home, Routine, Self-Care Clinical Impression: Migraine Condition: Good Instructions: Migraine Headache (ED) Additional Instructions: You must take ibuprofen 600 mg or Excedrin migraine or your prescribed migraine medication if you feel your headache, non. Please make sure to drink plenty of fluids. Important that you follow up with your neurologist in 1-2 days. Referrals: Anatoliy Cabral MD [Medical Doctor] - As per Instructions
[2017-08-23 03:40] VITALS: BP 108/74; PULSE 81; RESP 16; O2SAT 98
== END 2017-08-23 03:38 | disposition home or self-care (01) ==
DX: G43.909 Migraine, unspecified, not intractable, without status migrainosus (principal); E86.9 Volume depletion, unspecified
CPT/HCPCS: 96374; J1100; J1885; J2405

== ENCOUNTER 2017-10-04 22:15 | Emergency (ER) | payer OTHER ==
[2017-10-04 22:20] VITALS: TEMP 98.2
[2017-10-04] MEDS ORDERED: KETOROLAC 15 MG/1 ML SDV IVP ONE (22:36)
[2017-10-04] MEDS ORDERED: ONDANSETRON 4 MG/2 ML VIAL IVP ONE (22:36)
[2017-10-04] MEDS ORDERED: NS 1,000 ML IV ONE (22:36)
--- NOTE | 2017-10-04 22:38 | EDPHY ---
H & P Stated Complaint: c/o migraine/nausea x 3 days Time Seen by Provider: 10/04/17 22:29 HPI/ROS: Chief Complaint: Migraine headache HPI: 22-year-old female with a history of migraine headaches with multiple ER visits in the past presenting with headache consistent with her prior migraines. Had left-sided temporal headache for the last 3 days. She takes sumatriptan and Topamax with a little bit of relief but still having persistent headache. Is currently 7/10. She has positive photophobia. Some nausea but no vomiting. No neck pain or stiffness. No fevers or chills. She drove here and is requesting no sedating medications. ROS: 10 point Review of Systems is negative except as noted in the HPI. PMH: Migraine headache Social History: No smoking, no alcohol, no recreational drug use Family History: non-contributory Physical Exam: Gen: Awake, Alert, No Distress HEENT: Nose: no rhinorrhea Eyes: PERRLA, EOMI Mouth: Moist mucosa Neck: Supple, no JVD Chest: nontender, lungs clear to auscultation Heart: S1, S2 normal, no murmur Abd: Soft, non-tender, no guarding Back: no CVA tenderness, no midline tenderness Ext: no edema, non-tender Skin: no rash Neuro: CN II-XII intact, Sensation grossly intact, Strength 5/5 in bilateral upper and lower extremities - Medical/Surgical History Hx Asthma: No Hx Chronic Respiratory Disease: No Hx Diabetes: No Hx Cardiac Disease: No Hx Renal Disease: No Hx Cirrhosis: No Hx Alcoholism: No Hx HIV/AIDS: No Hx Splenectomy or Spleen Trauma: No Other PMH: MIGRAINES (has hx x 2yrs), add, cholecystectomy - Social History Smoking Status: Never smoked Constitutional: Initial Vital Signs Temperature (C) 36.8 C 10/04/17 22:18 Heart Rate 103 H 10/04/17 22:18 Respiratory Rate 16 10/04/17 22:18 Blood Pressure 143/94 H 10/04/17 22:18 O2 Sat (%) 98 10/04/17 22:18 O2 Delivery Mode Room Air Allergies/Adverse Reactions: No Known Allergies Allergy (Verified 10/04/17 22:20) Home Medications: Medication Instructions Recorded Rizatriptan 06/03/17 Topamax 10/04/17 Medical Decision Making ED Course/Re-evaluation: Patient is improved after Toradol Zofran and Haldol. Headache is gone. Will discharge with follow-up with a neurologist, return for worsening. - Data Points Medications Given: Discontinued Medications Haloperidol Lactate (Haldol Injection) 2.5 mg IVP EDNOW ONE Stop: 10/04/17 23:32 Last Admin: 10/04/17 23:44 Dose: 2.5 mg Sodium Chloride (Ns) 1,000 mls @ 0 mls/hr IV ONCE ONE; Wide Open PRN Reason: Protocol Stop: 10/04/17 22:37 Last Admin: 10/04/17 22:52 Dose: 1,000 mls Ketorolac Tromethamine (Toradol) 15 mg IVP EDNOW ONE Stop: 10/04/17 22:37 Last Admin: 10/04/17 22:52 Dose: 15 mg Ondansetron HCl (Zofran) 4 mg IVP EDNOW ONE Stop: 10/04/17 22:37 Last Admin: 10/04/17 22:51 Dose: 4 mg Departure - Departure Disposition: Home, Routine, Self-Care Clinical Impression: Migraine Condition: Good Instructions: Migraine Headache (ED) Additional Instructions: You may take your usual migraine medications if her headache returns. Follow up with your neurologist in 3-4 days for further evaluation. Return to the emergency department for worsening headache, uncontrolled nausea vomiting, fevers, chills, neck stiffness, or any other concerns. Referrals: Anatoliy Cabral MD [Medical Doctor] - As per Instructions
[2017-10-04] MEDS ORDERED: BACITRACIN OINTMENT 1 PACKET TP ONE (22:46)
[2017-10-04] MEDS ORDERED: HALOPERIDOL LACT 5 MG/ML INJ IVP ONE (23:31)
[2017-10-05 01:04] VITALS: BP 116/74; PULSE 77; RESP 16; O2SAT 97
== END 2017-10-05 01:04 | disposition home or self-care (01) ==
PROC: 3E0337Z Introduction of Electrolytic and Water Balance Substance into Peripheral Vein, Percutaneous Approach (ICD-10-PCS; principal; 2017-10-04)
DX: G43.909 Migraine, unspecified, not intractable, without status migrainosus (principal); E86.9 Volume depletion, unspecified
CPT/HCPCS: 96374; J1630; J1885; J2405

== ENCOUNTER 2017-10-13 13:06 | Emergency (ER) | payer OTHER ==
[2017-10-13 13:22] VITALS: TEMP 98.1
[2017-10-13] MEDS ORDERED: DEXAMETHASONE 10 MG/ML VIAL IVP ONE (15:54)
[2017-10-13] MEDS ORDERED: ONDANSETRON 4 MG/2 ML VIAL IVP ONE (15:54)
[2017-10-13] MEDS ORDERED: KETOROLAC 30 MG/1 ML SDV IVP ONE (15:54)
[2017-10-13] MEDS ORDERED: NS 1,000 ML IV ONE (15:54)
--- NOTE | 2017-10-13 15:59 | EDPHY ---
H & P Time Seen by Provider: 10/13/17 14:59 HPI/ROS: HPI Headache. 22-year-old female by private vehicle. This patient has a long history of migraine headaches. She has been seen in our emergency department approximately 10 times since May for her migraine headaches. She has been treated successfully in the short term for these headaches through her emergency department visits. She has also recently seen Dr. Anatoliy Cabral of the neurology service. He is advising Botox treatment. She is considering this. She reports onset of a typical migraine headache, left-sided throbbing, gradual in onset yesterday evening. She reports no relieve with home medications. She denies any change in this headache from her previous headaches. She has associated photophobia which is typical and she has some nausea as well. ROS: Constitutional: No fever, no chills. No weakness. Eyes: No discharge. No changes in vision. As above. ENT: No sore throat. No nasal congestion or rhinorrhea. Respiratory: No cough. No shortness of breath. Cardiac: No chest pain, no palpitations. Gastrointestinal: No abdominal pain, no vomiting, no diarrhea. Genitourinary: No hematuria. No dysuria or increased frequency with urination. Musculoskeletal: No back pain. No neck pain. No myalgias or arthralgias. Skin: No rashes. Neurological: As above. No focal weakness or altered sensation. Past medical history: Migraine headache. Cholecystectomy. As above. Social history: Nonsmoker. No alcohol. Here by herself. Physical Exam: General Appearance: Alert, no distress. This patient is responding to questions appropriately and in full sentences. This patient appears well- hydrated and well-nourished. Eyes: Pupils equal and round no pallor or injection. No lid edema, erythema or injection. She has some photophobia. No nystagmus. Respiratory: There are no retractions, lungs are clear to auscultation with good air movement bilaterally. Cardiovascular: Regular rate and rhythm. No murmur. Neurological: Motor sensory function is grossly intact. Cranial nerves are normal. Gait is normal. Skin: Warm and dry, no rashes. Musculoskeletal: Neck is supple and nontender. No pain on flexion of her neck. Extremities are symmetrical. All joints range without pain or impingement. Psychiatric: No agitation. No depression. Database: EKG: Imaging: Procedures: Emergency department course: IV placed. Vital signs reviewed and are normal. She had a normal creatinine from July of 2017. No contraindications to NSAIDs. She is asking for medications that will not sedate her in any way. She was subsequently given 4 mg of IV Zofran, 10 mg of IV Decadron and 30 mg of IV Toradol. She was started on 1 L of IV normal saline as well. 4:40 p.m., patient re-evaluated. Feeling better. Repeat neurologic Assessment nonfocal. 5:55 p.m., patient re-evaluated. Resting comfortably at this time. Headache has completely resolved. Repeat neurologic Assessment is nonfocal. She feels comfortable going home at this time and I feel she is safe for discharge. She is to follow up with her neurologist, Dr. Anatoliy Cabral for further management of her migraine headaches. Return to emergency department precautions were reviewed with her thoroughly. All of her questions were answered. She was discharged in good condition. Differential Diagnosis: The differential diagnosis on this patient includes but is not limited to migraine headache. Subarachnoid hemorrhage, meningitis, encephalitis, cavernous sinus thrombosis, sagittal sinus thrombosis, temporal arteritis unlikely. This represents a partial list of diagnoses considered. These considerations are based on history, physical exam, past history, reassessment and diagnostic testing. Smoking Status: Never smoked Constitutional: Initial Vital Signs Temperature (C) 36.7 C 10/13/17 13:20 Heart Rate 81 10/13/17 13:20 Respiratory Rate 18 10/13/17 13:20 Blood Pressure 125/72 H 10/13/17 13:20 O2 Sat (%) 95 10/13/17 13:20 O2 Delivery Mode Room Air Allergies/Adverse Reactions: No Known Allergies Allergy (Verified 10/04/17 22:20) Home Medications: Medication Instructions Recorded Rizatriptan 06/03/17 Topamax 10/04/17 Medical Decision Making - Data Points Medications Given: Discontinued Medications Dexamethasone (Decadron Injection) 10 mg IVP EDNOW ONE Stop: 10/13/17 15:55 Last Admin: 10/13/17 16:21 Dose: 10 mg Sodium Chloride (Ns) 1,000 mls @ 0 mls/hr IV ONCE ONE; Wide Open PRN Reason: Protocol Stop: 10/13/17 15:55 Last Admin: 10/13/17 16:22 Dose: 1,000 mls Ketorolac Tromethamine (Toradol) 30 mg IVP EDNOW ONE Stop: 10/13/17 15:55 Last Admin: 10/13/17 16:22 Dose: 30 mg Ondansetron HCl (Zofran) 4 mg IVP EDNOW ONE Stop: 10/13/17 15:55 Last Admin: 10/13/17 16:22 Dose: 4 mg Departure - Departure Disposition: Home, Routine, Self-Care Clinical Impression: Migraine headache Condition: Good Instructions: Migraine Headache (ED) Additional Instructions: Read and follow provided instructions. Follow-up with Dr. Anatoliy Cabral of the neurology service in 1-2 days for re- evaluation and further management of your migraine headaches. Return to the emergency department for worsening headache, vomiting, fever, neck pain or other serious concerns. Referrals: NONE *PRIMARY CARE P,. [Primary Care Provider] - As per Instructions
[2017-10-13 18:08] VITALS: BP 108/75; PULSE 77; RESP 16; O2SAT 100
== END 2017-10-13 18:06 | disposition home or self-care (01) ==
PROC: 3E0337Z Introduction of Electrolytic and Water Balance Substance into Peripheral Vein, Percutaneous Approach (ICD-10-PCS; principal; 2017-10-13)
DX: G43.909 Migraine, unspecified, not intractable, without status migrainosus (principal); E86.9 Volume depletion, unspecified
CPT/HCPCS: 96374; J1100; J1885; J2405

== ENCOUNTER 2017-10-23 21:28 | Emergency (ER) | payer OTHER ==
[2017-10-23] MEDS ORDERED: HYDROmorphONE/DILAUDID 1 MG/ML INJ IVP ONE (21:38)
[2017-10-23] MEDS ORDERED: METOCLOPRAMIDE 10 MG/2 ML VIAL IVP ONE (21:38)
[2017-10-23] MEDS ORDERED: KETOROLAC 30 MG/1 ML SDV IVP ONE (21:38)
[2017-10-23] MEDS ORDERED: NS 1,000 ML IV ONE (21:38)
[2017-10-23] MEDS ORDERED: ONDANSETRON 4 MG/2 ML VIAL IVP ONE (21:38)
--- NOTE | 2017-10-23 21:38 | EDPHY ---
H & P HPI/ROS: HPI CHIEF COMPLAINT: Migraine headache HISTORY OF PRESENT ILLNESS: This patient very pleasant 22-year-old female longstanding history of migraine headaches followed by Dr. Cabral on an outpatient basis, presents emergency room with a left-sided headache. She states consistent with her previous migraine headaches. Denies any neck pain or stiff neck. Eyes fever. Denies recent illness. She has 11 ER visits for this. She states that her headache is similar to previous migraine headaches in the past. She denies any vomiting. Denies fever. Does have nausea. Left- sided throbbing headache frontal to the posterior occiput. Past Medical History: Longstanding history of migraine headaches. Past Surgical History: Cholecystectomy Social History: Denies daily use of drugs alcohol tobacco. Family History: Noncontributory ROS REVIEW OF SYSTEMS: A comprehensive 10 point review of systems is otherwise negative aside from elements mentioned in the history of present illness. Exam Constitutional appears well nontoxic triage nursing summary reviewed, vital signs reviewed, awake/alert. Eyes normal conjunctivae and sclera, EOMI, PERRLA. HENT normal inspection, atraumatic, moist mucus membranes, no epistaxis, neck supple/ no meningismus, no raccoon eyes. Respiratory clear to auscultation bilaterally, normal breath sounds, no respiratory distress, no wheezing. Cardiovascular rate normal, regular rhythm, no murmur, no edema, distal pulses normal. Gastrointestinal soft, non-tender, no rebound, no guarding, normal bowel sounds, no distension, no pulsatile mass. Genitourinary no CVA tenderness. Musculoskeletal no midline vertebral tenderness, full range of motion, no calf swelling, no tenderness of extremities, no meningismus, good pulses, neurovascularly intact. Skin pink, warm, & dry, no rash, skin atraumatic. Neurologic normal unremarkable neurological exam no focal neuro deficit on exam, no stiff neck, awake, alert and oriented x 3, AAOx3, moves all 4 extremities equally, motor intact, sensory intact, CN II-XII intact, normal cerebellar, normal vision, normal speech. Psychiatric normal mood/affect. Heme/Lymph/Immune no lymphadenopathy. Differential Diagnosis: Includes but is not limited to in a particular order migraine headache, tension headache, cluster headache, intracranial bleed which I doubt given history and physical exam, sinus venous thrombosis which is unlikely. Medical Decision Making: Plan for this patient IV establishment IV fluid bolus , migraine medication cocktail, check basic blood work and re-evaluate Re-evaluation: 2302: Re-evaluation at this time patient resting comfortably no acute distress. She tells me that her headache is completely resolved and she would like to go home. Her neurological exam is unremarkable she denies any fever, vomiting, severe headache at this time. Prescription given for Fioricet. Return precautions discussed. Follow up with her primary care doctor/neurologist. Return if worsening symptoms she understands. Source: Patient - Medical/Surgical History Hx Asthma: No Hx Chronic Respiratory Disease: No Hx Diabetes: No Hx Cardiac Disease: No Hx Renal Disease: No Hx Cirrhosis: No Hx Alcoholism: No Hx HIV/AIDS: No Hx Splenectomy or Spleen Trauma: No Other PMH: MIGRAINES (has hx x 2yrs), add, cholecystectomy - Social History Smoking Status: Never smoked Constitutional: Initial Vital Signs Temperature (C) 37 C 10/23/17 21:30 Heart Rate 97 10/23/17 21:30 Respiratory Rate 18 10/23/17 21:30 Blood Pressure 130/97 H 10/23/17 21:30 O2 Sat (%) 97 10/23/17 21:30 O2 Delivery Mode Room Air Allergies/Adverse Reactions: No Known Allergies Allergy (Verified 10/23/17 21:50) Home Medications: Medication Instructions Recorded Rizatriptan 06/03/17 Topamax 10/04/17 Acet/Caffeine/Buta Fioricet 1 each PO Q6 #10 tab 10/23/17 [Fioricet (*)] Medical Decision Making - Data Points Laboratory Results: Laboratory Results 10/23/17 22:00 10/23/17 22:00 10/23/17 10/23/17 10/23/17 22:00 22:00 22:00 WBC 9.52 10^3/uL H 10^3/uL (3.80-9.50) RBC 4.74 10^6/uL 10^6/uL (4.18-5.33) Hgb 13.9 g/dL g/dL (12.6-16.3) Hct 41.9 % % (38.0-47.0) MCV 88.4 fL fL (81.5-99.8) MCH 29.3 pg pg (27.9-34.1) MCHC 33.2 g/dL g/dL (32.4-36.7) RDW 14.3 % % (11.5-15.2) Plt Count 346 10^3/uL 10^3/uL (150-400) MPV 10.3 fL fL (8.7-11.7) Neut % (Auto) 55.8 % % (39.3-74.2) Lymph % (Auto) 33.3 % % (15.0-45.0) [place] % (Auto) 8.7 % % (4.5-13.0) Eos % (Auto) 0.9 % % (0.6-7.6) Baso % (Auto) 0.9 % % (0.3-1.7) Nucleat RBC Rel Count 0.0 % % (0.0-0.2) Absolute Neuts (auto) 5.30 10^3/uL 10^3/uL (1.70-6.50) Absolute Lymphs (auto) 3.17 10^3/uL H 10^3/uL (1.00-3.00) Absolute Monos (auto) 0.83 10^3/uL H 10^3/uL (0.30-0.80) Absolute Eos (auto) 0.09 10^3/uL 10^3/uL (0.03-0.40) Absolute Basos (auto) 0.09 10^3/uL 10^3/uL (0.02-0.10) Absolute Nucleated RBC 0.00 10^3/uL 10^3/uL (0-0.01) Immature Gran % 0.4 % % (0.0-1.1) Immature Gran # 0.04 10^3/uL 10^3/uL (0.00-0.10) Sodium 143 mEq/L mEq/L (135-145) Potassium 4.3 mEq/L mEq/L (3.5-5.2) Chloride 108 mEq/L mEq/L (97-110) Carbon Dioxide 20 mEq/l L mEq/l (22-31) Anion Gap 15 mEq/L mEq/L (8-16) BUN 14 mg/dL mg/dL (7-23) Creatinine 0.8 mg/dL mg/dL (0.6-1.0) Estimated GFR > 60 Glucose 100 mg/dL mg/dL (70-100) Calcium 10.3 mg/dL mg/dL (8.5-10.4) Beta HCG, Qual NEGATIVE Medications Given: Discontinued Medications Diphenhydramine HCl (Benadryl Injection) 50 mg IVP EDNOW ONE Stop: 10/23/17 21:40 Last Admin: 10/23/17 22:07 Dose: 25 mg Hydromorphone HCl (Dilaudid) 0.5 mg IVP EDNOW ONE Stop: 10/23/17 21:39 Last Admin: 10/23/17 22:11 Dose: Not Given Sodium Chloride (Ns) 1,000 mls @ 0 mls/hr IV EDNOW ONE; Wide Open PRN Reason: Protocol Stop: 10/23/17 21:39 Last Admin: 10/23/17 22:02 Dose: 1,000 mls Ketorolac Tromethamine (Toradol) 30 mg IVP EDNOW ONE Stop: 10/23/17 21:39 Last Admin: 10/23/17 22:05 Dose: 30 mg Metoclopramide HCl (Reglan Injection) 10 mg IVP EDNOW ONE Stop: 10/23/17 21:39 Last Admin: 10/23/17 22:08 Dose: 10 mg Ondansetron HCl (Zofran) 4 mg IVP EDNOW ONE Stop: 10/23/17 21:39 Last Admin: 10/23/17 22:03 Dose: 4 mg Departure - Departure Disposition: Home, Routine, Self-Care Clinical Impression: Migraine headache Qualifiers: Migraine type: other Status migrainosus presence: without status migrainosus Intractability: not intractable Qualified Code(s): G43.809 - Other migraine, not intractable, without status migrainosus Condition: Good Instructions: Migraine Headache (ED), Acute Headache (ED) Additional Instructions: 1. Stay well-hydrated drink lots of fluids. 2. Low stimulus environment of next 24-48 hours. 3. Follow up with your primary care doctor. 4. Return emergency room if you have worsening symptoms questions or concerns Referrals: NONE *PRIMARY CARE P,. [Primary Care Provider] - As per Instructions Prescriptions: Acet/Caffeine/Buta Fioricet [Fioricet (*)] 1 each PO Q6 #10 tab
[2017-10-23 21:58] VITALS: RESP 18
[2017-10-23 22:11] LABS: PLATELET COUNT 346 10^3/uL (150-400)
[2017-10-23 23:24] VITALS: BP 110/84; PULSE 82; TEMP 98.2; O2SAT 96
== END 2017-10-23 23:24 | disposition home or self-care (01) ==
DX: G43.809 Other migraine, not intractable, without status migrainosus (principal); E86.9 Volume depletion, unspecified
CPT/HCPCS: 96374; J1170; J1200; J1885; J2405; J2765

== ENCOUNTER 2017-11-14 10:51 | Emergency (ER) | payer OTHER ==
[2017-11-14 11:25] VITALS: BP 117/85; PULSE 87; RESP 15; TEMP 98.2; O2SAT 94
== END 2017-11-14 13:52 | disposition left against medical advice (07) ==
DX: Z53.21 Procedure and treatment not carried out due to patient leaving prior to being seen by health care provider (principal)

== ENCOUNTER 2017-11-21 12:17 | Emergency (ER) | payer OTHER ==
[2017-11-21 12:32] VITALS: RESP 18
--- NOTE | 2017-11-21 13:23 | EDPHY ---
H & P Stated Complaint: Migraine x 2-3 days; has hx Time Seen by Provider: 11/21/17 13:18 - Personal History LMP (Females 10-55): 15-21 Days Ago Current Tetanus Diphtheria and Acellular Pertussis (TDAP): Yes - Medical/Surgical History Hx Asthma: No Hx Chronic Respiratory Disease: No Hx Diabetes: No Hx Cardiac Disease: No Hx Renal Disease: No Hx Cirrhosis: No Hx Alcoholism: No Hx HIV/AIDS: No Hx Splenectomy or Spleen Trauma: No Other PMH: MIGRAINES (has hx x 2yrs), add, cholecystectomy - Social History Smoking Status: Never smoked Constitutional: Initial Vital Signs Temperature (C) 36.6 C 11/21/17 12:30 Heart Rate 93 11/21/17 12:30 Respiratory Rate 18 11/21/17 12:30 Blood Pressure 130/93 H 11/21/17 12:30 O2 Sat (%) 98 11/21/17 12:30 O2 Delivery Mode Room Air Allergies/Adverse Reactions: No Known Allergies Allergy (Verified 11/21/17 12:29) Home Medications: Medication Instructions Recorded Rizatriptan 06/03/17 Topamax 10/04/17 Medical Decision Making ED Course/Re-evaluation: CHIEF COMPLAINT: Migraine HISTORY OF PRESENT ILLNESS: 22 y/o female with history of migraines well known to this ED presents with migraine headache. She has been treated successfully in the short term for these headaches through her emergency department visits. She is followed by Dr. Cabral, neurologist. She generally takes Topomax and a triptan medication to relieve symptoms, but not prophylactically. She reports no relief with home medications. She denies any change in this headache from her previous headaches. She has associated photophobia which is typical and she has some nausea as well. No fever, weakness or numbness in her extremities, neck pain, or other associated symptoms. REVIEW OF SYSTEMS: A 10 point review of systems was performed and is negative with the exception of the elements mentioned in the history of present illness. PHYSICAL EXAM: HR, BP, O2 Sat, RR. Temp noted General Appearance: Alert, well hydrated, appropriate, and non-toxic appearing. Head: Atraumatic without scalp tenderness or obvious injury Eyes: Pupils equal, round, reactive to light and accommodation, EOMI, no trauma , no injection. Ears: Clear bilaterally, no perforation, normal landmarks Nose: Atraumatic, no rhinorrhea, clear. Throat: There is no erythema or exudates, no lesions, normal tonsils, mucus membranes moist. Neck: Supple, 2+ carotid upstroke, nontender, no lymphadenopathy. Respiratory: No retractions, no distress, no wheezes, and no accessory muscle use. Lungs are clear to auscultation bilaterally. Cardiovascular: Regular rate and rhythm, no murmurs, rubs, or gallops. Good capillary refill all extremities. Gastrointestinal: Abdomen is soft, nontender, non-distended. Musculoskeletal: Normal active ROM of all extremities, atraumatic. Neurological: Alert, appropriate, and interactive. The patient has normal DTRs and non-focal cranial nerves, motor, sensory, and cerebellar exam. Skin: No rashes, good turgor, no nodules on palpation. Past medical history: Migraines. Past surgical history: Noncontributory. Family history: Noncontributory. Social history: Student at [employer]. Single. Lives in [place]. DIFFERENTIAL DIAGNOSIS: The differential diagnosis for the patient's headache included but was not limited to subarachnoid hemorrhage, migraine headache, tension headache and infectious causes such as meningitis, pharyngitis and sinusitis. MEDICAL DECISION MAKIN22 y/o female presents with migraine headache. Exam unremarkable. Her symptoms are generally well resolved with migraine cocktail. She requests medications that will not make her drowsy. Plan to administer 10mg IV Reglan, 10mg IV Decadron, 30mg IV Toradol, and 1L IV NS for symptom relief. 15:10 Patient is feeling well after medication administration. Her headache is completely resolved. Plan to discharge home in good condition. She will follow up with her neurologist for discussion of her medication regimen. Return precautions discussed. She is comfortable with this plan. - Data Points Medications Given: Discontinued Medications Dexamethasone (Decadron Injection) 10 mg IVP EDNOW ONE Stop: 11/21/17 13:35 Last Admin: 11/21/17 13:52 Dose: 10 mg Sodium Chloride (Ns) 1,000 mls @ 3,000 mls/hr IV EDNOW ONE Stop: 11/21/17 13:54 Last Admin: 11/21/17 13:52 Dose: 1,000 mls Ketorolac Tromethamine (Toradol) 30 mg IVP EDNOW ONE Stop: 11/21/17 13:35 Last Admin: 11/21/17 13:52 Dose: 30 mg Metoclopramide HCl (Reglan Injection) 10 mg IVP EDNOW ONE Stop: 11/21/17 13:35 Last Admin: 11/21/17 13:52 Dose: 10 mg Departure - Departure Disposition: Home, Routine, Self-Care Clinical Impression: Migraine Qualifiers: Migraine type: other Status migrainosus presence: without status migrainosus Intractability: not intractable Qualified Code(s): G43.809 - Other migraine, not intractable, without status migrainosus Condition: Good Instructions: Migraine Headache (ED) Additional Instructions: 1. Follow up with your neurologist for discussion of your medication regimen. 2. Return to the emergency department for recurrence of headache, nausea, vomiting, numbness, weakness, neck pain, fever or other concerns. Referrals: Anatoliy Cabral MD [Medical Doctor] - As per Instructions
[2017-11-21] MEDS ORDERED: METOCLOPRAMIDE 10 MG/2 ML VIAL IVP ONE (13:34)
[2017-11-21] MEDS ORDERED: DEXAMETHASONE 10 MG/ML VIAL IVP ONE (13:34)
[2017-11-21] MEDS ORDERED: KETOROLAC 30 MG/1 ML SDV IVP ONE (13:34)
[2017-11-21] MEDS ORDERED: NS 1,000 ML IV ONE (13:35)
[2017-11-21 15:28] VITALS: BP 107/75; PULSE 85; TEMP 98.4; O2SAT 95
== END 2017-11-21 15:28 | disposition home or self-care (01) ==
DX: G43.809 Other migraine, not intractable, without status migrainosus (principal)
CPT/HCPCS: 96374; J1100; J1885; J2765

== ENCOUNTER 2017-12-15 12:19 | Emergency (ER) | payer OTHER ==
--- NOTE | 2017-12-15 12:59 | EDPHY ---
H & P Stated Complaint: migraine starting on , fevers yesterday Time Seen by Provider: 12/15/17 13:00 HPI/ROS: CHIEF COMPLAINT: Migraine HISTORY OF PRESENT ILLNESS: The patient is a 22 y/o female with a long history of migraines returning to the ED for the 15th time in the last year complaining of a migraine headache onset on , 4 days ago. Her headache is localized to her left frontoparietal region and behind her left eye. She has associated photophobia and nausea and reports symptoms feel the same as prior migraines. She is followed by her neurologist, Dr. Carbal, for her migraines and uses Topamax and triptan as needed for symptoms, but these are not controlling this episode. She is scheduled for Botox injections soon. Prior migraines requiring ED management have generally been well-managed with migraine cocktails. She notes a subjective fever yesterday--she has not taken any antipyretics today. No weakness, paresthesias, speech difficulty, neck stiffness, or other symptoms. REVIEW OF SYSTEMS: A 10 point review of systems was performed and is negative with the exception of the elements mentioned in the history of present illness. Past medical history: Migraines Past surgical history: Noncontributory Family history: Noncontributory Social history: Nonsmoker. No alcohol. [employer] student. Neurologist: Dr. Cabral Adult Physical: General Appearance: Alert, no acute distress. Sitting in a dark room. Afebrile. Eyes: Pupils equal and round, no conjunctival injection, no discharge. ENT, Mouth: Mucous membranes are moist, no oropharyngeal erythema or edema. Neck: No lymphadenopathy, supple. No meningeal signs. Respiratory: Lungs are clear to auscultation; no wheezes, rales, or rhonchi. Cardiovascular: Regular rate and rhythm; no murmur, rub, or gallop. Gastrointestinal: Abdomen is soft and non tender, no masses or organomegaly. Skin: Warm and dry, no rashes, normal color. Back: Nontender to palpation over the thoracolumbar spine. Extremities: No lower extremity edema, no calf tenderness or swelling. Neurological: Alert and oriented. Moving all four extremities easily and equally. YONAS. EOMI. Facial expressions symmetric. Tongue midline. Strength is 5 over 5 bilaterally with testing of all major motor groups. Sensation is intact to light touch over all 4 extremities. Deep tendon reflexes are 2+ in the biceps and knees bilaterally. Gait is deferred. Psychiatric: Normal affect. - Personal History LMP (Females 10-55): 15-21 Days Ago Current Tetanus/Diphtheria Vaccine: Unsure Current Tetanus Diphtheria and Acellular Pertussis (TDAP): Unsure - Medical/Surgical History Hx Asthma: No Hx Chronic Respiratory Disease: No Hx Diabetes: No Hx Cardiac Disease: No Hx Renal Disease: No Hx Cirrhosis: No Hx Alcoholism: No Hx HIV/AIDS: No Hx Splenectomy or Spleen Trauma: No Other PMH: MIGRAINES (has hx x 2yrs), add, cholecystectomy - Social History Smoking Status: Never smoked Constitutional: Initial Vital Signs Temperature (C) 36.8 C 12/15/17 12:21 Heart Rate 86 12/15/17 12:21 Respiratory Rate 18 12/15/17 12:21 Blood Pressure 116/81 H 12/15/17 12:21 O2 Sat (%) 98 12/15/17 12:21 O2 Delivery Mode Room Air Allergies/Adverse Reactions: No Known Allergies Allergy (Verified 12/15/17 12:21) Home Medications: Medication Instructions Recorded Rizatriptan 06/03/17 Topamax 10/04/17 Medical Decision Making ED Course/Re-evaluation: Patient re-evaluated at 2:00 p.m.. She is now headache free and feels well enough to return home. I do not find evidence of infection and do not suspect intracranial hemorrhage. She is being referred back to her neurologist where she is planning to have Botox injections for headache treatment. Differential Diagnosis: Headache including but not limited to subarachnoid hemorrhage, migraine headache , tension headache and infectious causes such as meningitis, pharyngitis and sinusitis. - Data Points Medications Given: Discontinued Medications Dexamethasone (Decadron Injection) 10 mg IVP EDNOW ONE Stop: 12/15/17 13:09 Last Admin: 12/15/17 13:20 Dose: 10 mg Sodium Chloride (Ns) 1,000 mls @ 0 mls/hr IV ONCE ONE; Wide Open PRN Reason: Protocol Stop: 12/15/17 13:09 Last Admin: 12/15/17 13:22 Dose: 1,000 mls Ketorolac Tromethamine (Toradol) 30 mg IVP EDNOW ONE Stop: 12/15/17 13:09 Last Admin: 12/15/17 13:20 Dose: 30 mg Metoclopramide HCl (Reglan Injection) 10 mg IVP EDNOW ONE Stop: 12/15/17 13:09 Last Admin: 12/15/17 13:20 Dose: 10 mg Departure - Departure Disposition: Home, Routine, Self-Care Clinical Impression: Migraine Qualifiers: Migraine type: other Status migrainosus presence: with status migrainosus Intractability: not intractable Qualified Code(s): G43.801 - Other migraine, not intractable, with status migrainosus Condition: Good Instructions: Migraine Headache (ED) Additional Instructions: 1. Continue all medications as directed. 2. Increase fluid intake. 3. Follow up with your neurologist this week. 4. Return to the ED for worsening of condition. Referrals: Anatoliy Cabral MD [Medical Doctor] - As per Instructions Report Scribed for: Gogo Alex Report Scribed by: Germania Matos Date of Report: 12/15/17 Time of Report: 13:00 Physician Review and Approval Statement: 12/15/17 14:19 Portions of this note were transcribed by the medical instrument technician. I, Dr. Gogo Alex, personally performed the history, physical exam, and medical decision- making; and confirmed the accuracy of the information in the transcribed note.
[2017-12-15] MEDS ORDERED: METOCLOPRAMIDE 10 MG/2 ML VIAL IVP ONE (13:08)
[2017-12-15] MEDS ORDERED: NS 1,000 ML IV ONE (13:08)
[2017-12-15] MEDS ORDERED: DEXAMETHASONE 10 MG/ML VIAL IVP ONE (13:08)
[2017-12-15] MEDS ORDERED: KETOROLAC 30 MG/1 ML SDV IVP ONE (13:08)
[2017-12-15] MEDS ORDERED: DEXAMETHASONE 10 MG/ML VIAL ONE (13:12)
[2017-12-15] MEDS ORDERED: KETOROLAC 30 MG/1 ML SDV ONE (13:12)
[2017-12-15] MEDS ORDERED: METOCLOPRAMIDE 10 MG/2 ML VIAL ONE (13:12)
[2017-12-15 14:41] VITALS: BP 108/68
== END 2017-12-15 14:41 | disposition home or self-care (01) ==
DX: G43.801 Other migraine, not intractable, with status migrainosus (principal); E86.9 Volume depletion, unspecified
CPT/HCPCS: 96374; J1100; J1885; J2765

== ENCOUNTER 2018-01-27 23:35 | Emergency (ER) | payer OTHER ==
[2018-01-27] MEDS ORDERED: KETOROLAC 15 MG/1 ML SDV IVP ONE (23:48)
[2018-01-27] MEDS ORDERED: HALOPERIDOL LACT 5 MG/ML INJ IVP ONE (23:49)
[2018-01-27] MEDS ORDERED: KETOROLAC 15 MG/1 ML SDV ONE (23:49)
[2018-01-27] MEDS ORDERED: HALOPERIDOL LACT 5 MG/ML INJ ONE (23:49)
--- NOTE | 2018-01-27 23:51 | EDPHY ---
H & P Stated Complaint: migraine x4 days, nausea Time Seen by Provider: 01/27/18 23:43 HPI/ROS: Chief Complaint: Migraine headache HPI: 22-year-old female well known to this emergency department a history of chronic migraine headaches. She is presenting today with 4 days of her usual headache. Is on the left side. Is pounding. Is a 7 or 8/10. She has had some nausea but no vomiting. No fevers or chills. She has been seen by Dr. Cabral. She had Botox injections a month ago with significant relief. She states that her has been worse because she is fasting for the month of . ROS: 10 point Review of Systems is negative except as noted in the HPI. PMH: Migraine headaches Social History: No smoking, no alcohol, no recreational drug use Family History: non-contributory Physical Exam: Gen: Awake, Alert, No Distress HEENT: Nose: no rhinorrhea Eyes: PERRLA, EOMI Mouth: Moist mucosa Neck: Supple, no JVD Chest: nontender, lungs clear to auscultation Heart: S1, S2 normal, no murmur Abd: Soft, non-tender, no guarding Back: no CVA tenderness, no midline tenderness Ext: no edema, non-tender Skin: no rash Neuro: CN II-XII intact, Sensation grossly intact, Strength 5/5 in bilateral upper and lower extremities - Personal History LMP (Females 10-55): Now Current Tetanus/Diphtheria Vaccine: Unsure - Medical/Surgical History Hx Asthma: No Hx Chronic Respiratory Disease: No Hx Diabetes: No Hx Cardiac Disease: No Hx Renal Disease: No Hx Cirrhosis: No Hx Alcoholism: No Hx HIV/AIDS: No Hx Splenectomy or Spleen Trauma: No Other PMH: MIGRAINES (has hx x 2yrs), add, cholecystectomy - Social History Smoking Status: Never smoked Constitutional: Initial Vital Signs Temperature (C) 36.6 C 01/27/18 23:39 Heart Rate 100 01/27/18 23:39 Respiratory Rate 18 01/27/18 23:39 Blood Pressure 121/83 H 01/27/18 23:39 O2 Sat (%) 100 01/27/18 23:39 O2 Delivery Mode Room Air Allergies/Adverse Reactions: No Known Allergies Allergy (Verified 12/15/17 12:21) Home Medications: Medication Instructions Recorded Rizatriptan 06/03/17 Topamax 10/04/17 Zofran 01/27/18 Medical Decision Making ED Course/Re-evaluation: Patient's headache is gone. She is asking to go home. I have encouraged her to follow up with her neurologist for further care. - Data Points Medications Given: Discontinued Medications Haloperidol Lactate (Haldol Injection) 2.5 mg IVP EDNOW ONE Stop: 01/27/18 23:50 Last Admin: 01/28/18 00:04 Dose: 2.5 mg Ketorolac Tromethamine (Toradol) 15 mg IVP EDNOW ONE Stop: 01/27/18 23:49 Last Admin: 01/28/18 00:04 Dose: 15 mg Departure - Departure Disposition: Home, Routine, Self-Care Clinical Impression: Migraine Condition: Good Instructions: Migraine Headache (ED) Additional Instructions: Follow up with your neurologist, Dr. Cabral, in 4-5 days for further evaluation. Referrals: Anatoliy Cabral MD [Medical Doctor] - As per Instructions
[2018-01-28] MEDS ORDERED: NS 1,000 ML IV SCH (00:15)
[2018-01-28 01:13] VITALS: BP 109/82
== END 2018-01-28 01:18 | disposition home or self-care (01) ==
DX: G43.909 Migraine, unspecified, not intractable, without status migrainosus (principal)
CPT/HCPCS: 96374; J1630; J1885

== ENCOUNTER 2018-03-17 14:24 | Emergency (ER) | payer OTHER ==
[2018-03-17] MEDS ORDERED: KETOROLAC 30 MG/1 ML SDV IVP ONE (15:05)
[2018-03-17] MEDS ORDERED: DEXAMETHASONE 10 MG/ML VIAL IVP ONE (15:05)
[2018-03-17] MEDS ORDERED: METOCLOPRAMIDE 10 MG/2 ML VIAL IVP ONE (15:05)
[2018-03-17] MEDS ORDERED: NS 1,000 ML IV ONE (15:06)
[2018-03-17 16:09] VITALS: BP 116/78
--- NOTE | 2018-03-17 16:11 | EDPHY ---
H & P Smoking Status: Never smoked Time Seen by Provider: 03/17/18 14:41 HPI/ROS: CHIEF COMPLAINT: Migraine headache HISTORY OF PRESENT ILLNESS: 22-year-old female presents to the emergency department with migraine headache. The patient has a history of migraines and she feels that this is a typical migraine that has been present for the last several days, she thinks for possibly up to 2 weeks. She has tried her medications that she has at home without relief. She states that this was a gradual onset that just has not resolved. She feels nauseous although no vomiting. No chest pain or difficulty breathing. No fevers or chills. No neck pain. No reported trauma. REVIEW OF SYSTEMS: Constitutional: No fever, no chills. Eyes: No double or blurry vision. ENT: No sore throat. Respiratory: No cough, no shortness of breath. Cardiac: No chest pain. Gastrointestinal: Nausea. No abdominal pain, vomiting or diarrhea. Genitourinary: No dysuria. Musculoskeletal: No neck or back pain. Skin: No rashes. Neurological: headache. (LorettaJudie kennedy) Past Medical/Surgical History: Chronic migraines (LorettaJudie kennedy) Social History: [employer] student from [employer] (LorettaJudie kennedy) Physical Exam: General Appearance: Alert, no distress. Mentating normally and answering questions appropriately. 128/81, heart rate 68, 97% on room air. Eyes: Pupils equal and round. Extraocular motions are all intact. ENT: Mouth: Mucous membranes moist. Respiratory: No wheezing, rhonchi, or rales, lungs are clear to auscultation. Cardiovascular: Regular rate and rhythm. Gastrointestinal: Abdomen is soft and nontender, no masses, no rebound or guarding, bowel sounds normal. Neurological: Alert and oriented x 3, cranial nerves II through XII grossly intact Skin: Warm and dry, no rashes. Musculoskeletal: Nontender to palpate along the cervical, thoracic or lumbar spine. Neck is supple. Extremities: Full range of motion and no peripheral edema. Psychiatric: Patient is oriented X 3, there is no agitation. (LorettaJudie kennedy) Constitutional: Initial Vital Signs Temperature (C) 36.7 C 03/17/18 14:27 Heart Rate 68 03/17/18 14:27 Respiratory Rate 16 03/17/18 14:27 Blood Pressure 128/81 H 03/17/18 14:27 O2 Sat (%) 97 03/17/18 14:27 O2 Delivery Mode Room Air Allergies/Adverse Reactions: No Known Allergies Allergy (Verified 03/17/18 14:26) Home Medications: Medication Instructions Recorded Rizatriptan 06/03/17 Topamax 10/04/17 Zofran 01/27/18 Medical Decision Making ED Course/Re-evaluation: Patient presents with a typical migraine headache. She had an IV established and was given 15 mg of IV Toradol, 10 mg of IV Decadron, 25 mg of IV Benadryl, and 10 mg of IV Reglan. She also received IV normal saline. She was feeling much better. She feels that her headache has resolved. I encouraged her to follow up with her neurologist, Dr. Cabral and she should return sooner if she feels worse in any way. (Judie Ellsworth) I did not see this patient while she was in the emergency department. However her care was discussed with the PA while the patient was in the department. I agree with treatment plan and management (Chris Ann) Differential Diagnosis: Headache including but not limited to subarachnoid hemorrhage, migraine headache , tension headache and infectious causes such as meningitis, pharyngitis and sinusitis. (Judie Ellsworth) - Data Points Medications Given: Discontinued Medications Dexamethasone (Decadron Injection) 10 mg IVP EDNOW ONE Stop: 03/17/18 15:06 Last Admin: 03/17/18 15:13 Dose: 10 mg Diphenhydramine HCl (Benadryl Injection) 25 mg IVP EDNOW ONE Stop: 03/17/18 15:06 Last Admin: 03/17/18 15:14 Dose: 25 mg Sodium Chloride (Ns) 1,000 mls @ 0 mls/hr IV ONCE ONE PRN Reason: Wide Open Stop: 03/17/18 15:07 Last Admin: 03/17/18 15:12 Dose: 1,000 mls Ketorolac Tromethamine (Toradol) 15 mg IVP EDNOW ONE Stop: 03/17/18 15:06 Last Admin: 03/17/18 15:12 Dose: 15 mg Metoclopramide HCl (Reglan Injection) 10 mg IVP EDNOW ONE Stop: 03/17/18 15:06 Last Admin: 03/17/18 15:13 Dose: 10 mg Departure - Departure Disposition: Home, Routine, Self-Care Clinical Impression: Migraine Qualifiers: Migraine type: unspecified Status migrainosus presence: without status migrainosus Intractability: not intractable Qualified Code(s): G43.909 - Migraine, unspecified, not intractable, without status migrainosus Condition: Good Instructions: Migraine Headache (ED) Additional Instructions: Follow-up with your neurologist as discussed. Return to the emergency department if you have any change in symptoms or if you feel worse in any way. Referrals: Anatoliy Cabral MD [Medical Doctor] - As per Instructions (Neurologist )
== END 2018-03-17 16:22 | disposition home or self-care (01) ==
DX: G43.909 Migraine, unspecified, not intractable, without status migrainosus (principal)
CPT/HCPCS: 96374; J1100; J1200; J1885; J2765

== ENCOUNTER 2018-05-12 09:57 | Emergency (ER) | payer OTHER ==
[2018-05-12] MEDS ORDERED: NS 1,000 ML IV ONE (10:16)
[2018-05-12] MEDS ORDERED: METOCLOPRAMIDE 10 MG/2 ML VIAL IVP ONE (10:37)
[2018-05-12] MEDS ORDERED: KETOROLAC 15 MG/1 ML SDV IVP ONE (10:37)
[2018-05-12] MEDS ORDERED: DEXAMETHASONE 10 MG/ML VIAL IVP ONE (10:37)
--- NOTE | 2018-05-12 10:37 | EDPHY ---
General - History Smoking Status: Never smoked Time Seen by Provider: 05/12/18 10:31 Narrative: CHIEF COMPLAINT: Migraine HISTORY OF PRESENT ILLNESS: Patient presents with complaints of migraine headache. It is right-sided, anterior posterior. It was gradual onset last Friday. Constant duration. Wax and wanes but never resolved. Some photophobia. Some nausea but no vomiting. She has some blurred vision at times. No neck pain or stiffness. No fever. She has secondary complaint of right flank pain. It is mild to moderate. Difficult for her to describe this. No predictable modifying factors. No urinary complaints. Currently on her menstruation. No other associated complaints or modifying factors. REVIEW OF SYSTEMS: 10 systems were reviewed and negative with the exception of the elements mentioned in the history of present illness. PCP: None SPECIALISTS: Dr. Cabral, neurology PAST MEDICAL HISTORY: Migraine headaches PAST SURGICAL HISTORY: Cholecystectomy SOCIAL HISTORY: Nonsmoker. Originally from [facility]. [employer] student. FAMILY HISTORY: Noncontributory EXAMINATION: General Appearance: Alert, no distress Head: normocephalic, atraumatic Eyes: Pupils equal and round, no conjunctival pallor or injection. EOM symmetric without nystagmus. ENT, Mouth: Mucous membranes moist Neck: Normal inspection, supple, non-tender. No meningismus or rigidity. Respiratory: Lungs are clear to auscultation Cardiovascular: Regular rate and rhythm Gastrointestinal: Abdomen is soft and nontender Back: non-tender, no bony abnormalities Neurological: GCS 15. A&O, nonfocal, normal gait. Strength is symmetric in upper extremities. No pronator drift. Normal [id number]. Skin: Warm and dry, no rash Extremities: Nontender, no pedal edema Psychiatric: Mood and affect normal DIFFERENTIAL DIAGNOSES: Including but not limited to migraine, cluster headache, subarachnoid hemorrhage , subdural hematoma, meningitis MDM: 10:35 a.m. Complaints of headache with actual complaint of recurrent migraine. She is awake and alert no acute distress. Vital signs are within normal limits. She has a normal neuro examination. I have ordered medications that have helped her in the past, but I have not ordered Benadryl at her request as she would like to try and drive home. She also has secondary complaint of right flank pain that is mild. Her abdominal exam is benign. There is no CVA tenderness. No fever. She is not sexually active but is currently on her menstruation. I have ordered laboratory studies and urinalysis for this. 10:50 a.m. Laboratory studies are within normal limits. Urine samples not yet been provided. 11:40 a.m. Patient re-evaluated. She states that her headache is now resolved to the point that she would like to go home. She is no longer concerned or having any of the right flank pain. I discussed the urinalysis that would help us evaluate for this, and she has declined. She would like to go home and follow up accordingly. We discussed ED precautions. School note be provided. She is discharged home stable condition. SUPERVISION: This patient was independently evaluated without direct involvement of or examination by the attending physician. CONSULTATION: None (Keith Sanchez) The patient was evaluated and managed by the physician assistant manager airside operations. I have reviewed this chart and I agree with the findings and plan of care as documented , as indicated by my signature. I am the secondary supervising physician. ( Gogo Alex) - Objective Vital Signs: Initial Vital Signs Temperature (C) 36.7 C 05/12/18 10:00 Heart Rate 81 05/12/18 10:00 Respiratory Rate 17 05/12/18 10:00 Blood Pressure 108/75 05/12/18 10:00 O2 Sat (%) 99 05/12/18 10:00 O2 Delivery Mode Room Air Allergies/Adverse Reactions: No Known Allergies Allergy (Verified 05/12/18 09:59) Home Medications: Medication Instructions Recorded Rizatriptan 06/03/17 Topamax 10/04/17 Zofran 01/27/18 Botox 05/12/18 Butal/Asp/Caffeine-Fiorinal 1 each PO Q6 PRN #9 cap 05/12/18 [Fiorinal 50-325-40 mg Cap (RX)] Laboratory Results: Laboratory Results 05/12/18 10:10 05/12/18 10:10 Medications Given: Discontinued Medications Dexamethasone (Decadron Injection) 10 mg IVP EDNOW ONE Stop: 05/12/18 10:38 Last Admin: 05/12/18 10:52 Dose: 10 mg Sodium Chloride (Ns) 1,000 mls @ 0 mls/hr IV ONCE ONE PRN Reason: Wide Open Stop: 05/12/18 10:17 Last Admin: 05/12/18 10:17 Dose: 1,000 mls Ketorolac Tromethamine (Toradol) 15 mg IVP EDNOW ONE Stop: 05/12/18 10:38 Last Admin: 05/12/18 10:52 Dose: 15 mg Metoclopramide HCl (Reglan Injection) 10 mg IVP EDNOW ONE Stop: 05/12/18 10:38 Last Admin: 05/12/18 10:52 Dose: 10 mg Departure - Departure Disposition: Home, Routine, Self-Care Clinical Impression: Flank pain Migraine Qualifiers: Migraine type: other Status migrainosus presence: without status migrainosus Intractability: not intractable Qualified Code(s): G43.809 - Other migraine, not intractable, without status migrainosus Condition: Good Instructions: Migraine Headache (ED), Acute Headache (ED), Flank Pain (ED) Additional Instructions: 1. Medication as prescribed as needed 2. Resume your previous medications 3. Contact Dr. Cabral for outpatient care 4. Return here for any return of the flank pain, abdominal pain, nausea vomiting fever Referrals: Anatoliy Cabral MD [Medical Doctor] - As per Instructions Stand Alone Forms: School Excuse Prescriptions: Butal/Asp/Caffeine-Fiorinal [Fiorinal 50-325-40 mg Cap (RX)] 1 each PO Q6 PRN # 9 cap PRN Reason: Headache
[2018-05-12 10:46] LABS: PLATELET COUNT 341 10^3/uL (150-400)
[2018-05-12 11:51] VITALS: BP 116/63
== END 2018-05-12 11:58 | disposition home or self-care (01) ==
DX: G43.809 Other migraine, not intractable, without status migrainosus (principal); R10.9 Unspecified abdominal pain
CPT/HCPCS: 96374; J1100; J1885; J2765

== ENCOUNTER 2018-06-11 04:03 | Emergency (ER) | payer OTHER ==
[2018-06-11] MEDS ORDERED: KETOROLAC 15 MG/1 ML SDV IVP ONE (04:26)
[2018-06-11] MEDS ORDERED: HALOPERIDOL LACT 5 MG/ML INJ IVP ONE (04:26)
[2018-06-11] MEDS ORDERED: NS 1,000 ML IV ONE (04:27)
--- NOTE | 2018-06-11 04:27 | EDPHY ---
H & P Stated Complaint: migraine X 2 weeks Time Seen by Provider: 06/11/18 04:14 HPI/ROS: Chief Complaint: Migraine headache HPI: 22-year-old woman well known to this emergency department with a history of chronic migraine headaches presenting with her typical migraine. This was been going on for the last 2 weeks. Is a 7/10. Primary on the left hand side. She is having nausea, photophobia and phonophobia. She has not had any relief with any of her home medications. No fevers or chills. No falls or trauma. Headache is described as a throbbing. She has not seen her neurologist for several months. ROS: 10 systems were reviewed and were negative except those elements noted in the HPI. PMH: Migraine headaches Social History: No smoking, no alcohol, no recreational drug use Family History: non-contributory Physical Exam: Gen: Awake, Alert, No Distress HEENT: Nose: no rhinorrhea Eyes: PERRLA, EOMI Mouth: Moist mucosa Neck: Supple, no JVD Chest: nontender, lungs clear to auscultation Heart: S1, S2 normal, no murmur Abd: Soft, non-tender, no guarding Back: no CVA tenderness, no midline tenderness Ext: no edema, non-tender Skin: no rash Neuro: CN II-XII intact, Sensation grossly intact, Strength 5/5 in bilateral upper and lower extremities - Personal History LMP (Females 10-55): Now Current Tetanus/Diphtheria Vaccine: Yes Current Tetanus Diphtheria and Acellular Pertussis (TDAP): Yes - Medical/Surgical History Hx Asthma: No Hx Chronic Respiratory Disease: No Hx Diabetes: No Hx Cardiac Disease: No Hx Renal Disease: No Hx Cirrhosis: No Hx Alcoholism: No Hx HIV/AIDS: No Hx Splenectomy or Spleen Trauma: No Other PMH: MIGRAINES (has hx x 2yrs), add, cholecystectomy - Social History Smoking Status: Never smoked Constitutional: Initial Vital Signs Temperature (C) 36.6 C 06/11/18 04:07 Heart Rate 80 06/11/18 04:07 Respiratory Rate 16 06/11/18 04:07 Blood Pressure 130/88 H 06/11/18 04:07 O2 Sat (%) 99 06/11/18 04:07 O2 Delivery Mode Room Air Allergies/Adverse Reactions: No Known Allergies Allergy (Verified 06/11/18 04:05) Home Medications: Medication Instructions Recorded Rizatriptan 06/03/17 Topamax 10/04/17 Zofran 01/27/18 Botox 05/12/18 Butal/Asp/Caffeine-Fiorinal 1 each PO Q6 PRN #9 cap 05/12/18 [Fiorinal 50-325-40 mg Cap (RX)] Medical Decision Making ED Course/Re-evaluation: Patient's headache is improved after Toradol and Haldol. Will discharge with follow-up with a neurologist. - Data Points Medications Given: Discontinued Medications Haloperidol Lactate (Haldol Injection) 2.5 mg IVP EDNOW ONE Stop: 06/11/18 04:27 Last Admin: 06/11/18 04:41 Dose: 2.5 mg Sodium Chloride (Ns) 1,000 mls @ 0 mls/hr IV ONCE ONE; Wide Open PRN Reason: Protocol Stop: 06/11/18 04:28 Last Admin: 06/11/18 04:41 Dose: 1,000 mls Ketorolac Tromethamine (Toradol) 15 mg IVP EDNOW ONE Stop: 06/11/18 04:27 Last Admin: 06/11/18 04:41 Dose: 15 mg Departure - Departure Disposition: Home, Routine, Self-Care Clinical Impression: Migraine Condition: Good Instructions: Migraine Headache (ED) Additional Instructions: Follow up with your neurologist in 3-4 days for further evaluation. Referrals: Anatoliy Carbal MD [Medical Doctor] - As per Instructions
[2018-06-11 05:50] VITALS: BP 125/71
== END 2018-06-11 05:50 | disposition home or self-care (01) ==
DX: G43.909 Migraine, unspecified, not intractable, without status migrainosus (principal); E86.9 Volume depletion, unspecified
CPT/HCPCS: 96374; J1630; J1885

== ENCOUNTER 2018-07-07 03:08 | Emergency (ER) | payer OTHER ==
[2018-07-07 03:13] VITALS: BP 118/82
--- NOTE | 2018-07-07 03:50 | EDPHY ---
H & P Stated Complaint: chills, nausea, "i think i have the flu", x1wk Time Seen by Provider: 07/07/18 03:17 HPI/ROS: HPI The patient presents with subjective fever, chills, rhinorrhea, sneezing, coughing for the last 3 days. She has been using ibuprofen for her symptoms though comes in for further evaluation. She says her symptoms have been constant or getting progressively worse. She denies any shortness of breath or chest pain. She denies any sick contacts.. REVIEW OF SYSTEMS 10 systems were reviewed and negative with the exception of the elements mentioned in the history of present illness. PMHx: Very frequent ED visits for migraine headaches Soc Hx: College student, from [employer] PHYSICAL General Appearance: Alert, no distress Eyes: Pupils equal and round no pallor or injection ENT, Mouth: Mucous membranes moist, posterior pharynx is unremarkable Respiratory: There are no retractions, lungs are clear to auscultation Cardiovascular: Regular rate and rhythm Gastrointestinal: Abdomen is soft and non-tender, no masses, bowel sounds normal Neurological: A&O, moves all extremities Skin: Warm and dry, no rashes Musculoskeletal: Neck is supple non tender Extremities: symmetrical, full range of motion Psychiatric: Patient is oriented X 3, there is no agitation Source: Patient Exam Limitations: No limitations - Personal History LMP (Females 10-55): Now Current Tetanus Diphtheria and Acellular Pertussis (TDAP): Yes - Medical/Surgical History Hx Asthma: No Hx Chronic Respiratory Disease: No Hx Diabetes: No Hx Cardiac Disease: No Hx Renal Disease: No Hx Cirrhosis: No Hx Alcoholism: No Hx HIV/AIDS: No Hx Splenectomy or Spleen Trauma: No Other PMH: MIGRAINES (has hx x 2yrs), add, cholecystectomy - Social History Smoking Status: Never smoked Constitutional: Initial Vital Signs Temperature (C) 36.8 C 07/07/18 03:09 Heart Rate 91 07/07/18 03:09 Respiratory Rate 19 07/07/18 03:09 Blood Pressure 118/82 H 07/07/18 03:09 O2 Sat (%) 97 07/07/18 03:09 O2 Delivery Mode Room Air Allergies/Adverse Reactions: No Known Allergies Allergy (Verified 07/07/18 03:09) Home Medications: Medication Instructions Recorded Rizatriptan 06/03/17 Topamax 10/04/17 Zofran 01/27/18 Botox 05/12/18 Butal/Asp/Caffeine-Fiorinal 1 each PO Q6 PRN #9 cap 05/12/18 [Fiorinal 50-325-40 mg Cap (RX)] Medical Decision Making Differential Diagnosis: 22-year-old female with history of migraine headaches presents with URI type symptoms. Vital signs normal, nontoxic on exam. She may have influenza, however 3 days into illness would not benefit from testing is not a candidate for Tamiflu. Differential diagnosis includes influenza, viral URI, sinusitis. Departure - Departure Disposition: Home, Routine, Self-Care Clinical Impression: URI (upper respiratory infection) Qualifiers: URI type: unspecified viral URI Qualified Code(s): J06.9 - Acute upper respiratory infection, unspecified Condition: Good Instructions: Upper Respiratory Infection (ED) Additional Instructions: I recommend you continue taking ibuprofen 400 mg every 6 hr as needed. You can also try Sudafed which is available [id number] or Nasacort. Both of these can help with your congestion. Referrals: AMAN Ibarra,. [Clinic] - As per Instructions
== END 2018-07-07 03:56 | disposition home or self-care (01) ==
DX: J06.9 Acute upper respiratory infection, unspecified (principal)

== ENCOUNTER 2018-07-23 03:13 | Emergency (ER) | payer OTHER ==
[2018-07-23 03:19] VITALS: BP 125/75
--- NOTE | 2018-07-23 03:36 | EDPHY ---
H & P Stated Complaint: LEFT WRIT PAIN FROM FALL SCOTTLIER TODAY AT 1600 Time Seen by Provider: 07/23/18 03:22 HPI/ROS: HPI The patient presents with left wrist and hand pain which began after several falls earlier yesterday. The patient tripped and fell on ice yesterday afternoon and landed on her left wrist. Then again while getting out of the car she slipped and landed on her left side and hit her wrist. She took a friend's Percocet with improvement in her pain, however it returned. She reports pain when she moves her left wrist and hand which is achy in nature and moderate in severity. She does not have any numbness or tingling of her fingers. She is right-hand dominant. REVIEW OF SYSTEMS 10 systems were reviewed and negative with the exception of the elements mentioned in the history of present illness. PMHx: Numerous ER visits for migraine-type headache Soc Hx: College student, from the [employer] [facility] PHYSICAL General Appearance: Alert, no distress Eyes: Pupils equal and round no pallor or injection ENT, Mouth: Mucous membranes moist Respiratory: Breathing comfortably Neurological: A&O, moves all extremities Skin: Warm and dry, no rashes Extremities: Left proximal dorsal surface of hand with 2 x 3 cm abrasion, limited range of motion of wrist secondary to pain, there is tenderness over the metacarpals diffusely with no anatomic snuffbox tenderness Psychiatric: Patient is oriented X 3, there is no agitation Source: Patient Exam Limitations: No limitations - Personal History LMP (Females 10-55): 8-14 Days Ago Current Tetanus/Diphtheria Vaccine: Yes Current Tetanus Diphtheria and Acellular Pertussis (TDAP): Yes - Medical/Surgical History Hx Asthma: No Hx Chronic Respiratory Disease: No Hx Diabetes: No Hx Cardiac Disease: No Hx Renal Disease: No Hx Cirrhosis: No Hx Alcoholism: No Hx HIV/AIDS: No Hx Splenectomy or Spleen Trauma: No Other PMH: MIGRAINES (has hx x 2yrs), add, cholecystectomy - Social History Smoking Status: Never smoked Constitutional: Initial Vital Signs Temperature (C) 36.9 C 07/23/18 03:15 Heart Rate 99 07/23/18 03:15 Respiratory Rate 16 07/23/18 03:15 Blood Pressure 125/75 H 07/23/18 03:15 O2 Sat (%) 97 07/23/18 03:15 O2 Delivery Mode Room Air Allergies/Adverse Reactions: No Known Allergies Allergy (Verified 07/07/18 03:09) Home Medications: Medication Instructions Recorded Rizatriptan 06/03/17 Topamax 10/04/17 Zofran 01/27/18 Botox 05/12/18 Butal/Asp/Caffeine-Fiorinal 1 each PO Q6 PRN #9 cap 05/12/18 [Fiorinal 50-325-40 mg Cap (RX)] Medical Decision Making - Diagnostics Imaging Results: X-ray left hand shows no fracture, no dislocation, interpreted by me, radiology interpretation is pending. Imaging: I viewed and interpreted images myself Procedures: SPLINT Procedure: Splint placement. A Velcro left wrist splint splint was applied to the left wrist by the tech. After application of the splint I returned and re-examined the patient. The splint was adequately immobilizing the joint and distal to the splint the patient's circulation and sensation was intact. Differential Diagnosis: 22-year-old healthy college student presents with wrist injury which occurred earlier in the day yesterday with ongoing pain now. She does have an abrasion to the dorsum of her wrist and proximal hand. She has no edema, she has limited range of motion secondary to pain. She is neurovascularly intact. X-ray was obtained and was unremarkable. I suspect wrist sprain with abrasion. I recommend rest, ice, elevation, compression. We will give her a splint from the emergency department and discharge her. She is happy with this plan. Departure - Departure Disposition: Home, Routine, Self-Care Clinical Impression: Injury of left hand Qualifiers: Encounter type: initial encounter Qualified Code(s): S69.92XA - Unspecified injury of left wrist, hand and finger(s), initial encounter Abrasion of left hand Qualifiers: Encounter type: initial encounter Qualified Code(s): S60.512A - Abrasion of left hand, initial encounter Condition: Good Instructions: R.I.C.E. Treatment (ED), Hand Sprain (ED) Referrals: AMAN Ibarra,. [Clinic] - As per Instructions
--- NOTE | 2018-07-23 10:59 | ASMTCMCOM ---
CM Note CM Note Notes: Assistance request from ED DR. Bustos to help locate the pt. Pt was in FED @ 3:25AM for hand and wrist pain. After pt. was DC'd Dr. Smith left a message for Dr. Bustos indicated that the Pt has a possible fracture and she will need to follow up for continued care. Dr. Bustos attempted to make outreach to pt. however the phone numbers in the system were incorrect. This field underwriter filed a request for student support and case management through [employer] ID #[id number]. A follow up call was made to student support & case management, this CW spoke with [employer] student support & case management who indicated she would pass the information on to a wrapper caser. Jaycob from [employer] made a follow up call and provided the pt.s phone number [phone] number was transposed in the system. Jaycob left a vm for the pt. She also followed up with an email to the pt. ([email or web address]) and this field underwriter requesting pt. to call ED CM. CM to follow up. Date Signed: 07/23/2018 10:58 AM Electronically Signed By:Claire Llamas LCSW
--- NOTE | 2018-07-23 15:53 | ASMTCMCOM ---
CM Note CM Note Notes: Pt. received a message from [facility] Student Case management department. Pt was informed of possible fracture and given Dr. Dennis Tee's office number [phone] to schedule a follow up appointment. Per ED DR. Bustos pt was also advised to keep her arm in the splint. Date Signed: 07/23/2018 03:52 PM Electronically Signed By:Claire Llamas LCSW
== END 2018-07-23 03:52 | disposition home or self-care (01) ==
DX: S60.512A Abrasion of left hand, initial encounter (principal); W00.9XXA Unspecified fall due to ice and snow, initial encounter; Y92.9 Unspecified place or not applicable; Y93.9 Activity, unspecified; Y99.9 Unspecified external cause status
CPT/HCPCS: L3807

== ENCOUNTER 2018-10-26 12:04 | Emergency (ER) | payer OTHER ==
--- NOTE | 2018-10-26 12:13 | EDPHY ---
H & P Stated Complaint: migraine Time Seen by Provider: 10/26/18 12:13 - Medical/Surgical History Hx Asthma: No Hx Chronic Respiratory Disease: No Hx Diabetes: No Hx Cardiac Disease: No Hx Renal Disease: No Hx Cirrhosis: No Hx Alcoholism: No Hx HIV/AIDS: No Hx Splenectomy or Spleen Trauma: No Other PMH: MIGRAINES (has hx x 2yrs), add, cholecystectomy - Social History Smoking Status: Never smoked Constitutional: Initial Vital Signs Temperature (C) 37.1 C 10/26/18 12:10 Heart Rate 87 10/26/18 12:10 Respiratory Rate 16 10/26/18 12:10 Blood Pressure 105/67 10/26/18 12:10 O2 Sat (%) 97 10/26/18 12:10 O2 Delivery Mode Room Air Allergies/Adverse Reactions: No Known Allergies Allergy (Verified 10/26/18 12:10) Home Medications: Medication Instructions Recorded Rizatriptan 06/03/17 Topamax 10/04/17 Zofran 01/27/18 Botox 05/12/18 Butal/Asp/Caffeine-Fiorinal 1 each PO Q6 PRN #9 cap 05/12/18 [Fiorinal 50-325-40 mg Cap (RX)] Medical Decision Making ED Course/Re-evaluation: CHIEF COMPLAINT: Migraine HISTORY OF PRESENT ILLNESS: The patient is a 23 y/o female with a history of migraines complaining of a headache and nausea, onset 1 week ago. She is followed by Dr. Cabral for her migraines. Her typical migraine medication has not helped with her most recent migraine. No fever, body aches, lightheadedness, chest pain, heart palpitations , shortness of breath, cough, abdominal pain, urinary or bowel complaints, numbness, paresthesias. REVIEW OF SYSTEMS: A comprehensive 10 system review of systems is otherwise negative aside from elements mentioned in the history of present illness and medical decision making. PHYSICAL EXAM: HR, BP, O2 Sat, RR. Temp noted General Appearance: Lying in a dark room, alert, well hydrated, appropriate, and non-toxic appearing. Head: Atraumatic without scalp tenderness or obvious injury Eyes: Pupils equal, round, reactive to light and accommodation, EOMI, no trauma , no injection. Ears: Clear bilaterally, no perforation, normal landmarks Nose: Atraumatic, no rhinorrhea, clear. Throat: There is no erythema or exudates, no lesions, normal tonsils, mucus membranes moist. Neck: Supple, 2+ carotid upstroke, nontender, no lymphadenopathy. Respiratory: No retractions, no distress, no wheezes, and no accessory muscle use. Lungs are clear to auscultation bilaterally. Cardiovascular: Regular rate and rhythm, no murmurs, rubs, or gallops. Bilateral carotid, radial, dorsalis pedis, and posterior tibial pulses intact. Good capillary refill all extremities. Gastrointestinal: Abdomen is soft, nontender, non-distended, no masses, no rebound, no guarding, no peritoneal signs. Musculoskeletal: Normal active ROM of all extremities, atraumatic. Neurological: Alert, appropriate, and interactive. The patient has normal DTRs and non-focal cranial nerves, motor, sensory, and cerebellar exam. Skin: No rashes, good turgor, no nodules on palpation. Past medical history: Migraines Past surgical history: Cholecystectomy Family history: Denies Social history: Single, student at , lives in [place] DIAGNOSTICS/PROCEDURES/CRITICAL CARE TIME: Not indicated. DIFFERENTIAL DIAGNOSIS: The differential diagnosis for the patient's headache included but was not limited to subarachnoid hemorrhage, migraine headache, tension headache and infectious causes such as meningitis, pharyngitis and sinusitis. MEDICAL DECISION MAKING: The patient is a 23 y/o female with a history of migraines presenting with an acute onset headache and nausea, onset 1 week ago. On exam she is lying in a dark room but has an otherwise normal physical exam. Migraine cocktail administered. 1317: Patient's migraine has completely resolved. I have advised her to follow up with her neurologist. Return precautions provided; patient is comfortable with this plan. - Data Points Medications Given: Discontinued Medications Ketorolac Tromethamine (Toradol) 30 mg IVP EDNOW ONE Stop: 10/26/18 12:18 Last Admin: 10/26/18 12:32 Dose: 30 mg Methylprednisolone Sodium Succinate (Solu-Medrol) 125 mg IVP EDNOW ONE Stop: 10/26/18 12:18 Last Admin: 10/26/18 12:32 Dose: 125 mg Metoclopramide HCl (Reglan Injection) 10 mg IVP EDNOW ONE Stop: 10/26/18 12:18 Last Admin: 10/26/18 12:32 Dose: 10 mg Departure - Departure Disposition: Home, Routine, Self-Care Clinical Impression: Migraine Qualifiers: Migraine type: unspecified Status migrainosus presence: without status migrainosus Intractability: intractable Qualified Code(s): G43.919 - Migraine, unspecified, intractable, without status migrainosus Condition: Good Instructions: Migraine Headache (ED) Additional Instructions: 1. Follow-up with your primary care physician or neurologist within 72 hours. 2. Return to the emergency department immediately for recurrence of headache, nausea, vomiting, numbness, weakness, neck pain, fever or other concerns. Referrals: Anatoliy Cabral MD [Medical Doctor] - As per Instructions Report Scribed for: Yohannes Fontaine Report Scribed by: Carlene Borrego Date of Report: 10/26/18 Time of Report: 12:16
[2018-10-26] MEDS ORDERED: methylPREDNISolone SOD SUCC 125 MG/2 ML VIAL IVP ONE (12:17)
[2018-10-26] MEDS ORDERED: METOCLOPRAMIDE 10 MG/2 ML VIAL IVP ONE (12:17)
[2018-10-26] MEDS ORDERED: KETOROLAC 30 MG/1 ML SDV IVP ONE (12:17)
[2018-10-26 13:28] VITALS: BP 108/74
== END 2018-10-26 13:28 | disposition home or self-care (01) ==
DX: G43.919 Migraine, unspecified, intractable, without status migrainosus (principal)
CPT/HCPCS: 96374; J1885; J2765; J2930